=== PATIENT | female | born 1985 | race Caucasian/White ===

== ENCOUNTER 2020-01-30 09:54 | Emergency (ER) | payer OTHER, SELFPAY ==
[2020-01-30 10:06] VITALS: BP 151/90; PULSE 69; RESP 18; TEMP 36.6; O2SAT 100
--- NOTE | 2020-01-30 10:36 | ED.GENADULT ---
HPI - General Adult General Chief complaint: Urogenital-Female Stated complaint: Nausea,Side Pain Time Seen by Provider: 01/30/20 10:18 Source: patient and RN notes reviewed Mode of arrival: ambulatory Limitations: no limitations History of Present Illness HPI narrative: Patient presents today with a 2-day history of left side pain that is sharp and stabbing and intermittent in nature with nausea, vomiting, and urinary frequency. States she vomited so many times yesterday she lost count. She has had one episode of vomiting today. She also had one episode of diarrhea/loose stool today without blood or mucus. Denies fever or abdominal pain. Denies back injury. History of GERD for which she takes Pepcid AC, but states she does not feel that it is working any longer. Denies dysuria, hematuria. MD complaint: Side pain, nausea and vomiting Related Data Home Medications Medication Instructions Recorded Confirmed bupropion HCl 300 mg PO DAILY 01/30/20 01/30/20 famotidine [Pepcid AC] 10 mg PO DAILY 01/30/20 01/30/20 Allergies Allergy/AdvReac Type Severity Reaction Status Date / Time No Known Allergies Allergy Verified 01/30/20 10:11 Review of Systems Review of Systems: Narrative: CONSTITUTIONAL: Denies body aches, fever, chills, or sweats. EYES: Denies visual changes, redness, or discharge. ENT: Denies rhinorrhea, congestion, sore throat, or otalgia. CARDIOVASCULAR: Denies chest pain, palpitations, or edema. RESPIRATORY: Denies cough or dyspnea. GASTROINTESTINAL: + Nausea, vomiting, diarrhea, left side pain GENITOURINARY: Denies dysuria or hematuria.+ Urinary frequency SKIN: Denies rash, itching, or wounds. MUSCULOSKELETAL: Denies back pain, joint pain, or myalgia. NEUROLOGIC: Denies headache, numbness, tingling, or weakness. PSYCH: Denies depression or anxiety. [facility] Past Medical History Medical History (Updated 01/30/20 @ 11:54 by Agnes Friedman, CYTOPATHOLOGIST, ) Delivery with history of GERD (gastroesophageal reflux disease) Comments At time of signature, I have reviewed and agree with nursing past medical, surgical, social and family history unless otherwise noted. Please see nursing chart for further information. There is no relevant family history pertinent to the presenting complaint Exam Narrative: Exam Narrative: GENERAL: Well-appearing, well-nourished, and in no acute distress. HEAD: Normocephalic, atraumatic. EYES: EOMI. No redness or drainage. Conjunctivae normal. ENT: Mucous membranes pink and moist. Nares clear. No rhinorrhea. TMs normal bilaterally. Throat normal. Uvula midline. NECK: Normal AROM. Supple. No lymphadenopathy. CHEST: No respiratory distress. Clear to auscultation. HEART: Regular rate and rhythm. No murmur appreciated. Normal peripheral pulses. ABDOMEN: Soft, nontender, nondistended, normal active bowel sounds.-CVAT MUSCULOSKELETAL: No bony tenderness. EXTREMITIES: Normal range of motion. No edema. SKIN: Warm, dry, no rash. Capillary refill normal. Normal skin turgor. NEURO: No focal deficits. Alert and oriented x3. Gait steady. PSYCH: Normal affect. No signs of depression or anxiety. Course Vital Signs Vital signs: Vital Signs Temperature 97.8 F 01/30/20 10:06 Pulse Rate 69 01/30/20 10:06 Respiratory Rate 18 01/30/20 10:06 Blood Pressure 151/90 H 01/30/20 10:06 Pulse Oximetry 100 01/30/20 10:06 Temperature 97.8 F 01/30/20 10:06 Pulse Rate 69 01/30/20 10:06 Respiratory Rate 18 01/30/20 10:06 Blood Pressure 151/90 H 01/30/20 10:06 Pulse Oximetry 100 01/30/20 10:06 Reviewed. Pt has been instructed to follow up with her PCP regarding her elevated blood pressure today. Medical Decision Making Differential Diagnosis Differential Diagnosis: Gastroenteritis, gastritis, esophagitis, GERD exacerbation, viral syndrome, UTI, pyelonephritis, kidney stone Vital Signs Vital Signs: Vital Signs Temperature 97.8 F 01/30/20 10:06 P
== END 2020-01-30 10:41 | disposition home or self-care (01) ==
PROVIDERS: Emergency Provider Nurse Practitioner; PCP Internal Medicine
DX: K52.9 Noninfective gastroenteritis and colitis, unspecified (principal); K21.9 Gastro-esophageal reflux disease without esophagitis
CPT/HCPCS: 81003; 99213; G0463

== ENCOUNTER 2020-03-24 19:13 | Emergency (ER) | payer OTHER, SELFPAY ==
[2020-03-24 19:29] VITALS: BP 143/82; PULSE 111; RESP 18; TEMP 36.8; O2SAT 99
--- NOTE | 2020-03-24 19:48 | ED.URI ---
HPI - URI/Sore Throat General Chief Complaint: Upper Respiratory Infection Stated Complaint: possible strep Time Seen by Provider: 03/24/20 19:33 Source: patient and RN notes reviewed Mode of arrival: ambulatory Limitations: no limitations History of Present Illness HPI Narrative: Patient presents today complaining of sore throat, only with swallowing, weight patches on her tongue, redness in her throat, bumps on her tongue and complaining of dryness to her tongue, causing increased thirst. Symptoms have been present for 2 days. Related Data Home Medications Medication Instructions Recorded Confirmed bupropion HCl 300 mg PO DAILY 01/30/20 01/30/20 famotidine [Pepcid AC] 10 mg PO DAILY 01/30/20 01/30/20 Allergies Allergy/AdvReac Type Severity Reaction Status Date / Time No Known Allergies Allergy Verified 01/30/20 10:11 Review of Systems Review of Systems: Narrative: CONSTITUTIONAL: Denies body aches, fever, chills, or sweats. EYES: Denies visual changes, redness, or discharge. ENT: Denies rhinorrhea, congestion, or otalgia. + Throat pain with swallowing, redness to the throat, bumps to the tongue, whiteness to the tongue, dryness to the tongue CARDIOVASCULAR: Denies chest pain, palpitations, or edema. RESPIRATORY: Denies cough or dyspnea. GASTROINTESTINAL: Denies abdominal pain, nausea, vomiting, or diarrhea.+ Increased thirst GENITOURINARY: Denies dysuria or hematuria. SKIN: Denies rash, itching, or wounds. MUSCULOSKELETAL: Denies back pain, joint pain, or myalgia. NEUROLOGIC: Denies headache, numbness, tingling, or weakness. PSYCH: Denies depression or anxiety. [facility] Past Medical History Medical History (Updated 03/25/20 @ 00:00 by Background Daemon) Delivery with history of GERD (gastroesophageal reflux disease) Comments At time of signature, I have reviewed and agree with nursing past medical, surgical, social and family history unless otherwise noted. Please see nursing chart for further information. There is no relevant family history pertinent to the presenting complaint Exam Narrative: Exam Narrative: GENERAL: Well-appearing, well-nourished, and in no acute distress. HEAD: Normocephalic, atraumatic. EYES: EOMI. No redness or drainage. Conjunctivae normal. ENT: Mucous membranes pink and moist. Nares clear. No rhinorrhea. TMs normal bilaterally. Throat with mild redness to the palatine arches only. No edema. Uvula midline. Tongue is slightly dry without coating or areas of white. No abnormal bumps, but normal papillae present. NECK: Normal AROM. Supple. No lymphadenopathy. CHEST: No respiratory distress. Clear to auscultation. HEART: Regular rate and rhythm. No murmur appreciated. Normal peripheral pulses. EXTREMITIES: Normal range of motion. No edema. SKIN: Warm, dry, no rash. Capillary refill normal. Normal skin turgor. NEURO: No focal deficits. Alert and oriented x3. Gait steady. PSYCH: Normal affect. No signs of depression or anxiety. Course Vital Signs Vital signs: Vital Signs Temperature 98.2 F 03/24/20 19:29 Pulse Rate 111 H 03/24/20 19:29 Respiratory Rate 18 03/24/20 19:29 Blood Pressure 143/82 H 03/24/20 19:29 Pulse Oximetry 99 03/24/20 19:29 Temperature 98.2 F 03/24/20 19:29 Pulse Rate 111 H 03/24/20 19:29 Respiratory Rate 18 03/24/20 19:29 Blood Pressure 143/82 H 03/24/20 19:29 Pulse Oximetry 99 03/24/20 19:29 Reviewed. Pt has been instructed to follow up with her PCP regarding her elevated blood pressure today. MDM - URI/Sore Throat Differential Diagnosis Differential diagnosis: Likely upper respiratory infection, viral infection and other (Glossitis, thrush, [id number], herpes, impetigo, strep throat, pharyngitis, tonsillitis) Lab Data Attestation: I reviewed the patient's lab results. Labs: Lab Results 03/24/20 Range/Units 19:49 POC Capillary Glucose 102 (65-105) mg/dl Strep Screen
[2020-03-24 19:52] LABS: Glucose Point of Care 102 (65-105)
== END 2020-03-24 20:09 | disposition home or self-care (01) ==
PROVIDERS: Emergency Provider Nurse Practitioner
DX: J02.9 Acute pharyngitis, unspecified (principal); K21.9 Gastro-esophageal reflux disease without esophagitis
CPT/HCPCS: 87081; 87880; 99213; G0463

== ENCOUNTER 2021-06-14 12:37 | Emergency (ER) | payer OTHER, SELFPAY ==
[2021-06-14 12:45] VITALS: BP 149/91; PULSE 98; RESP 16; TEMP 36.6; O2SAT 98
--- NOTE | 2021-06-14 13:08 | ED.URI ---
HPI - URI/Sore Throat General Chief Complaint: Upper Respiratory Infection Stated Complaint: alexander/dizziness/ear pain Time Seen by Provider: 06/14/21 13:08 Source: patient Mode of arrival: ambulatory Limitations: no limitations History of Present Illness HPI Narrative: 35-year-old female presents with complaint of pain to frontal aspect and occiput, also to sinuses and ears for 2 to 3 days. Reports that she has taken sinus severe medication and Excedrin Migraine with no relief of pain. She denies congestion, sore throat, postnasal drainage, cough. She states she thinks that this is a sinus pain. She has had sinus pain before and also headaches before but never this bad. She reports some dizziness and nausea due to pain. Dizziness is intermittent and usually when laying down at night. Denies fever. No vision changes. Ambulatory with steady gait. Attempted to call her PCP but was not able to get a hold of anyone for an appointment. All systems reviewed and negative except as noted above. Related Data Home Medications Medication Instructions Recorded Confirmed bupropion HCl 300 mg PO DAILY 01/30/20 06/14/21 omeprazole 20 mg PO DAILY 06/14/21 06/14/21 Allergies Allergy/AdvReac Type Severity Reaction Status Date / Time No Known Allergies Allergy Verified 01/30/20 10:11 Review of Systems Review of Systems: CONSTITUTIONAL: Denies fever, chills, or sweats. EYES: Denies visual changes, redness, or discharge. ENT: Denies rhinorrhea, congestion, sore throat, or otalgia. CARDIOVASCULAR: Denies chest pain, palpitations, or edema. RESPIRATORY: Denies cough or dyspnea. GASTROINTESTINAL: Denies abdominal pain, nausea, vomiting, or diarrhea. GENITOURINARY: Denies dysuria or hematuria. SKIN: Denies rash or itching. MUSCULOSKELETAL: Denies back pain, joint pain, or myalgia. NEUROLOGIC: Reports headache with intermittent dizziness. Denies numbness, or weakness. PSYCHIATRIC: Denies anxiety or depression. All other systems reviewed are negative, except as documented in HPI. [facility] Past Medical History Medical History (Updated 06/14/21 @ 13:46 by Geraldine Gonzalez NP) Delivery with history of GERD (gastroesophageal reflux disease) Comments At time of signature, agree with nursing past medical, surgical, social and family history. There is no relevant family history pertinent to the presenting complaint. Exam Narrative: GENERAL: This is a well-nourished, well-developed patient, in no apparent distress. HEAD: normocephalic, atraumatic. EYES: PERRL. Sclera clear/white. Vision is grossly intact. EARS: External ears normal, auditory canals clear and without drainage, TMs normal without perforation. Hearing grossly intact. NOSE: External nose normal mild erythema to both nares with scant clear discharge. THROAT: Mucous membranes moist, posterior pharynx clear. NECK: Neck supple, non-tender without lymphadenopathy, masses or thyromegaly. CARDIOVASCULAR: Regular rate and rhythm without murmurs, gallops, or rubs. RESPIRATORY: Clear to auscultation. Breath sounds equal bilaterally. No wheezes, rales, or rhonchi. SKIN: warm, Dry, intact with no suspicious lesions or rash, good texture and turgor. NEURO: awake, alert, and oriented to person, place and time. There were no obvious focal neurologic abnormalities. EXTREMITIES: Normal range of motion noted all extremities. Course Course Level of Care: Express Care Visit Vital Signs Vital signs: Vital Signs Temperature 36.6 C 06/14/21 12:45 Pulse Rate 98 06/14/21 12:45 Respiratory Rate 16 06/14/21 12:45 Blood Pressure 149/91 H 06/14/21 12:45 Pulse Oximetry 98 06/14/21 12:45 Temperature 36.6 C 06/14/21 12:45 Pulse Rate 98 06/14/21 12:45 Respiratory Rate 16 06/14/21 12:45 Blood Pressure 149/91 H 06/14/21 12:45 Pulse Oximetry 98 06/14/21 12:45 Reviewed MDM - URI/Sore Throat MDM Narrative Medical decision making narrative: Recommend pat
[2021-06-14] MEDS: ONDANSETRON HCL ODT 4 MG TABLET SUBLINGUAL (13:21)
[2021-06-14] MEDS: KETOROLAC (*BKC) 60 MG/2 ML VIAL IM (13:22)
== END 2021-06-14 13:55 | disposition home or self-care (01) ==
PROVIDERS: Emergency Provider Nurse Practitioner Family; PCP Internal Medicine
DX: R51.9 Headache, unspecified (principal); K21.9 Gastro-esophageal reflux disease without esophagitis
CPT/HCPCS: 96372; 99213; A9270; G0463; J1885

== ENCOUNTER 2021-07-17 10:30 | Emergency (ER) | payer OTHER, SELFPAY ==
[2021-07-17 10:37] VITALS: BP 143/83; PULSE 89; RESP 18; TEMP 35.7; O2SAT 99
--- NOTE | 2021-07-17 10:45 | ED.URI ---
HPI - URI/Sore Throat General Chief Complaint: Upper Respiratory Infection Stated Complaint: sore throat/cough Time Seen by Provider: 07/17/21 10:40 Source: patient Mode of arrival: ambulatory Limitations: no limitations History of Present Illness HPI Narrative: Ms. Boswell is a 35-year-old female patient presenting to the clinic today with complaints of cough, sore throat, nasal congestion, chest congestion, and wheezing x2 weeks. She reports that she is having a productive cough with green phlegm. She denies any fever or chills however she has been having some hot flashes. No known exposure to anyone with COVID, strep, or flu. She is a current social THC smoker. Also reports that she is mildly short of breath at times with exertion that seems to be gradually getting worse. MD elicited complaint: cough, sore throat, rhinorrhea and nasal congestion Related Data Home Medications Medication Instructions Recorded Confirmed bupropion HCl 300 mg PO DAILY 01/30/20 06/14/21 omeprazole 20 mg PO DAILY 06/14/21 06/14/21 Allergies Allergy/AdvReac Type Severity Reaction Status Date / Time No Known Allergies Allergy Verified 01/30/20 10:11 Review of Systems Review of Systems: Pertinent positives per HPI. Patient denies any fever, chills, rash, headache, visual changes, dizziness, cough, shortness of breath, chest pain, palpitations, nausea, vomiting, diarrhea, constipation, abdominal pain, or any urinary issues. [facility] Past Medical History Medical History Delivery with history of GERD (gastroesophageal reflux disease) Comments At the time of my signature, I reviewed and agree with the nursing past medical, surgical, social, and family history. There is no relevant family history pertinent to the patient complaint. Exam Narrative: General: Well-developed, morbidly obese, in no apparent distress Head: Normocephalic, atraumatic Eyes: Pupils equally round and reactive to light bilaterally, EOM intact, sclera and conjunctive clear, no discharge, lids normal Ears: TMs intact and clear, ear canals clear, no drainage, grossly hearing normal. Nose: Nares patent, clear nasal discharge, mild inflammation, no sinus tenderness. Mouth: Oral pharynx without lesions or masses, good dentition, MMM. Postnasal drip, oropharynx red Neck: Supple, trachea midline, no enlargement of anterior or posterior cervical nodes, no thyroid masses or goiter palpable. Cardio: Regular rate and rhythm, s1 and s2 normal, no murmur appreciated. Resp: Inspiratory and expiratory wheezing to the left mid and lower posterior lobe and expiratory wheezing to the right lower posterior lobe, no rhonchi, rales, or rubs Course Course Emergency Course: Portions of this record may have been created with voice recognition software. Level of Care: Express Care Visit Vital Signs Vital signs: Vital Signs Temperature 35.7 C L 07/17/21 10:37 Pulse Rate 89 07/17/21 10:37 Respiratory Rate 18 07/17/21 10:37 Blood Pressure 143/83 H 07/17/21 10:37 Pulse Oximetry 99 07/17/21 10:37 Temperature 35.7 C L 07/17/21 10:37 Pulse Rate 89 07/17/21 10:37 Respiratory Rate 18 07/17/21 10:37 Blood Pressure 143/83 H 07/17/21 10:37 Pulse Oximetry 99 07/17/21 10:37 Vital signs reviewed MDM - URI/Sore Throat MDM Narrative Medical decision making narrative: At the time of assessment patient is resting comfortably on the exam table. She reports the symptoms have been ongoing for 2 weeks. As inspiratory and expiratory wheeze over the left posterior lobe and expiratory wheeze on the right side. She is a current smoker. She has postnasal drip as well as coughing up some green phlegm. No fevers but she has been having some hot flashes. I suspect that she has acute bronchitis with postnasal drip and I will treat with a prescription for some prednisone, azithromycin, albuterol inhaler, and
== END 2021-07-17 11:04 | disposition home or self-care (01) ==
PROVIDERS: Emergency Provider Nurse Practitioner Family
DX: R09.82 Postnasal drip (principal); J20.9 Acute bronchitis, unspecified
CPT/HCPCS: 99213; G0463

== ENCOUNTER 2021-10-23 12:01 | Emergency (ER) | payer OTHER, SELFPAY ==
--- NOTE | ~2021-10-23 | XR_ITS ---
EXAMINATION: XR chest 2V DATE: 10/23/2021 12:32 INDICATION: Shortness of breath and cough and wheezing. TECHNIQUE: Frontal and lateral views of the chest were obtained on 3 radiographs. COMPARISON: Chest 2 views 01/06/2016 FINDINGS: The chest demonstrates clear lungs without pneumonia, pleural effusion, or pneumothorax. Th e heart size is normal. IMPRESSION: 1. No acute cardiopulmonary disease. Reviewed, dictated and finalized at location A.
--- NOTE | 2021-10-23 12:09 | ED.URI ---
HPI - URI/Sore Throat General Chief Complaint: Upper Respiratory Infection Stated Complaint: Feels hot, sore throat, ear pain Time Seen by Provider: 10/23/21 12:15 Source: patient, RN notes reviewed and old records reviewed Mode of arrival: ambulatory Limitations: no limitations History of Present Illness HPI Narrative: 35-year-old female presents to the [facility] with complaints of feeling hot without fever, sore throat, ear pain, chest congestion and wheezing. Patient states is been going on for 6 days. Has been taking Mucinex and Peg-Walsh severe cold. Denies chest pain or abdominal pain. Related Data Home Medications Medication Instructions Recorded Confirmed bupropion HCl 300 mg 24 hr tablet, 300 mg PO DAILY 01/30/20 10/23/21 extended release omeprazole 20 mg capsule,delayed 40 mg PO DAILY 06/14/21 10/23/21 release Allergies Allergy/AdvReac Type Severity Reaction Status Date / Time No Known Allergies Allergy Verified 10/23/21 12:09 Review of Systems Review of Systems: All systems reviewed & are unremarkable except as noted in HPI and below Constitutional: Constitutional: Reports no additional constitutional complaints, Denies chills and Denies fever(s) Eyes: Eyes: Reports no additional eye complaints ENT: Reports as per HPI, Reports nasal congestion and Reports sore throat Cardiovascular: Cardiovascular: Reports no additional cardiovascular complaints Respiratory: Respiratory: Reports as per HPI, Reports chest congestion, Reports cough and Reports wheezing Gastrointestinal: Gastrointestinal: Reports no additional gastrointestinal complaints Musculoskeletal: Musculoskeletal: Reports no additional musculoskeletal complaints Integumentary/Breasts: Skin/Breast: Reports system reviewed and no additional complaints, except as docu Neurologic: Reports system reviewed and no additional complaints, except as documented Psychiatric: Psychiatric: Reports no additional psychiatric complaints Allergic/Immunologic: Allergic/Immunologic: Reports no additional allergic/immunologic complaints PMFSH Past Medical History Medical History Delivery with history of GERD (gastroesophageal reflux disease) Comments At the time of my signature, I reviewed and agree with the nursing past medical, surgical, social, and family history. There is no relevant family history pertinent to the patient complaint. Exam Const: General: healthy appearing, no acute distress and alert Nutritional Appearance: well nourished and obese Orientation/consciousness: patient oriented x3 Limitations: no limitations HENMT: Head: normal to inspection Ears: external ears normal Eyes: General: appearance normal, both eyes and all related structures Pupils: Equal, round and reactive pupils present Neck: Neck: normal visual inspection, no lymphadenopathy and no meningeal signs Chest: Chest palpation & inspection: normal inspection of the chest Resp: Effort & Inspection: normal respiratory effort and no use of accessory muscles Auscultation: clear to auscultation bilaterally, no crackles, no rales, no rhonchi and wheezes expiratory wheezes and throughout Cardio: Rate: regular rate Rhythm: regular rhythm Back/Spine/Pelvis: Cervical Spine: normal cervical lordosis Thoracic/Lumbar Spine: thoracic and lumbar spine normal to inspection Skin: General skin exam: normal color Rashes: no rashes Wounds: no wounds Neuro: General: patient oriented x3, moves all extremities, no meningeal signs and no focal motor deficits Cranial nerves: Yes Equal, round and reactive pupils present Speech: normal speech Gait exam (Neuro): Normal gait present Extrem: General: normal to inspection, full ROM and capillary refill normal Psych: Appearance: grossly normal and well kempt Mental Status: mental status grossly normal Affect: normal affect Attitude: cooperative Thought con
[2021-10-23 12:10] VITALS: BP 141/91; PULSE 95; RESP 16; TEMP 35.9; O2SAT 99
== END 2021-10-23 12:56 | disposition home or self-care (01) ==
PROVIDERS: Emergency Provider Nurse Practitioner
DX: J40 Bronchitis, not specified as acute or chronic (principal); K21.9 Gastro-esophageal reflux disease without esophagitis
CPT/HCPCS: 71046; 87081; 87880; 99213; G0463

== ENCOUNTER 2021-12-24 18:08 | Emergency (ER) | payer OTHER, SELFPAY ==
[2021-12-24 18:20] VITALS: BP 138/109; PULSE 100; RESP 16; TEMP 36.3; O2SAT 100
--- NOTE | 2021-12-24 18:20 | ED.FEMALEGU ---
HPI - Female Genitourinary General Chief complaint: Urogenital-Female Stated complaint: UTI Time Seen by Provider: 12/24/21 18:20 Source: patient Mode of arrival: ambulatory Limitations: no limitations History of Present Illness HPI Narrative: Ms. Boswell is a 36-year-old female patient presenting to the clinic today with complaints of possible urinary infection x2 day She reports she has been taking Azo for her symptoms. She reports some left flank pain with urinary urgency, frequency, and dysuria. No fever or chills Related Data Home Medications Medication Instructions Recorded Confirmed bupropion HCl 300 mg 24 hr tablet, 300 mg PO DAILY 01/30/20 12/24/21 extended release omeprazole 20 mg capsule,delayed 40 mg PO DAILY 06/14/21 12/24/21 release hydrocodone 5 mg-acetaminophen 325 1 tablet PO Q6-8H PRN Pain 12/24/21 12/24/21 mg tablet Allergies Allergy/AdvReac Type Severity Reaction Status Date / Time No Known Allergies Allergy Verified 12/24/21 18:11 Review of Systems Review of Systems: Pertinent positives per HPI. Patient denies any fever, chills, rash, headache, visual changes, dizziness, cough, runny nose, sore throat, shortness of breath, chest pain, palpitations, nausea, vomiting, diarrhea, constipation, abdominal pain. [facility] Past Medical History Medical History Delivery with history of GERD (gastroesophageal reflux disease) Comments At the time of my signature, I reviewed and agree with the nursing past medical, surgical, social, and family history. There is no relevant family history pertinent to the patient complaint. Exam Narrative: General: Well-developed, well nourished, in no apparent distress. Head: Normocephalic, atraumatic. Cardio: Regular rate and rhythm, s1 and s2 normal, no murmur appreciated. Resp: Clear to auscultation bilaterally, no rhonchi, rales, wheezing or rubs. Abdomen: Soft, pliable, bowel sounds present in all quadrants, mild tenderness to palpation over the left side of the abdomen , no organomegly, left CVAT tenderness. Course Course Emergency Course: Portions of this record may have been created with voice recognition software. Level of Care: Express Care Visit Vital Signs Vital signs: Vital Signs Temperature 36.3 C L 12/24/21 18:20 Pulse Rate 100 12/24/21 18:20 Respiratory Rate 16 12/24/21 18:20 Blood Pressure 138/109 H 12/24/21 18:20 Pulse Oximetry 100 12/24/21 18:20 Oxygen Delivery Room Air 12/24/21 18:20 Temperature 36.3 C L 12/24/21 18:20 Pulse Rate 100 12/24/21 18:20 Respiratory Rate 16 12/24/21 18:20 Blood Pressure 138/109 H 12/24/21 18:20 Pulse Oximetry 100 12/24/21 18:20 Oxygen Delivery Room Air 12/24/21 18:20 Vital signs reviewed MDM - Female Genitourinary MDM Narrative Medical decision making narrative: At the time of visit patient is resting comfortably on the exam table. UA was obtained however patient has been taking Azo so this will skew her urine dip results. Patient has urinary symptoms with frequency and urgency as well as dysuria and left flank pain. I will treat her for urinary tract infection and sent her prescription for some Bactrim and some Zofran for nausea Differential Diagnosis Differential diagnosis: Likely urinary tract infection, cystitis and other (Pyelonephritis) Discharge Plan Discharge Clinical Impression: Urinary tract infection Qualifiers: Urinary tract infection type: acute cystitis Hematuria presence: with hematuria Qualified Code(s): N30.01 - Acute cystitis with hematuria Patient Disposition: Home, Self-Care Condition: Stable Instructions: Antibiotic Form, Urinary Tract Infection in Women (ED) Additional Instructions: We will send urine for culture Take Bactrim and as prescribed Increase fluids and stay well hydrated Wipe front to back. May use wet wipes. Avoid tub baths I
== END 2021-12-24 18:37 | disposition home or self-care (01) ==
PROVIDERS: Emergency Provider Nurse Practitioner Family; PCP Internal Medicine
DX: N30.01 Acute cystitis with hematuria (principal); K21.9 Gastro-esophageal reflux disease without esophagitis
CPT/HCPCS: 87086; 99213; G0463

== ENCOUNTER 2022-03-16 15:12 | Emergency (ER) | payer OTHER, SELFPAY ==
[2022-03-16 16:21] VITALS: BP 127/77; PULSE 92; RESP 20; TEMP 36.6; O2SAT 98
--- NOTE | 2022-03-16 16:57 | ED.GENADULT ---
HPI - General Adult General Chief complaint: Upper Respiratory Infection Stated complaint: alexander/ear pain/uri Time Seen by Provider: 03/16/22 16:58 Source: patient Mode of arrival: ambulatory Limitations: no limitations History of Present Illness HPI narrative: 36-year-old female patient presents to the [facility] with complaints of cold symptoms for the past 2 weeks. Patient states she started having a cough, congestion, and sinus pressure, ears full about 2 weeks ago. Patient states symptoms have improved but continues to have a cough and feels like she has a lot of chest congestion. Patient states she was doing [id number] Mucinex however her [id number] had some left over amoxicillin and she was taking 250 mg every 8 hours for a couple of days as well some leftover steroids but unsure of how much she was taking. Patient states she does have a rescue inhaler that she has been using but only been using it once or twice a day. Nothing consistent. Patient states she still feels like she is having trouble breathing. Related Data Home Medications Medication Instructions Recorded Confirmed bupropion HCl 300 mg 24 hr tablet, 300 mg PO DAILY 01/30/20 03/16/22 extended release omeprazole 20 mg capsule,delayed 40 mg PO DAILY 06/14/21 03/16/22 release Allergies Allergy/AdvReac Type Severity Reaction Status Date / Time No Known Allergies Allergy Verified 03/16/22 16:35 Review of Systems Review of Systems: CONSTITUTIONAL: Denies fever, chills, or sweats. EYES: Denies visual changes, redness, or discharge. ENT: Positive rhinorrhea, congestion, denied sore throat, or otalgia. CARDIOVASCULAR: Denies chest pain, palpitations, or edema. RESPIRATORY: Positive cough with or dyspnea. GASTROINTESTINAL: Denies abdominal pain, nausea, vomiting, or diarrhea. GENITOURINARY: Denies dysuria or hematuria. SKIN: Denies rash or itching. MUSCULOSKELETAL: Denies back pain, joint pain, or myalgia. NEUROLOGIC: Denies headache, numbness, or weakness. PSYCHIATRIC: Denies anxiety or depression. [facility] Past Medical History Medical History Delivery with history of GERD (gastroesophageal reflux disease) Comments At the time of my signature I agree with nursing past medical history, surgical, social, and family history. There is no relevant family history pertinent to the presenting complaint. Exam Narrative: GENERAL: Well-appearing, well-nourished, and in no acute distress. HEAD: Normocephalic, atraumatic. EYES: PERRLA and EOMI. ENT: Nares clear, no rhinorrhea or epistaxis. Mucous membranes moist. Posterior pharynx with no erythema, tonsillar enlargement, exudates or lesions present. Bilateral TMs are clear no erythema or foreign bodies the canal. NECK: Supple. No lymphadenopathy CHEST: Patient has some coarseness or rhonchi noted to bilateral upper lobes on auscultation. No respiratory distress. Patient able talk clear complete sentences. HEART: Regular rate and rhythm. No murmur heard. Normal peripheral pulses. ABDOMEN: Soft, nontender, nondistended, normal active bowel sounds. EXTREMITIES: Normal range of motion. No edema. SKIN: Warm, dry, no rash. NEURO: No focal deficits. Alert and oriented x3. Course Course Level of Care: Express Care Visit Reevaluation(s) Reevaluation #1: Re-evaluate patient after receiving the breathing treatment. Patient still sounds coarse but has improved. Patient states she is feeling little bit better and feels like she can breathe a little bit deeper than before. Discussed with patient we will discharge her home with a course of steroids, another albuterol inhaler as well as Tessalon Perles for the cough. Discussed with patient if she continues to have symptoms despite this course of treatment I would encourage her to follow up with her primary doctor. Date: 03/16/22 Time: 17:55 Vital Signs Vital signs: Vital Signs Temperature
[2022-03-16] MEDS: ALBUTEROL SULFATE NEB 2.5 MG/3 ML INH INHALATION (17:11)
[2022-03-16] MEDS: IPRATROPIUM BR 0.02% INH SOLN 0.5 MG/2.5 ML VIAL INHALATION (17:12)
== END 2022-03-16 18:05 | disposition home or self-care (01) ==
PROVIDERS: Emergency Provider Nurse Practitioner Family
DX: J20.8 Acute bronchitis due to other specified organisms (principal); K21.9 Gastro-esophageal reflux disease without esophagitis
CPT/HCPCS: 94640; 99213; G0463

== ENCOUNTER 2022-04-29 13:30 | Emergency (ER) | payer OTHER, SELFPAY ==
[2022-04-29 13:35] VITALS: BP 142/72; PULSE 89; RESP 16; TEMP 36.2; O2SAT 100
--- NOTE | 2022-04-29 14:34 | ED.URI ---
HPI - URI/Sore Throat General Chief Complaint: Upper Respiratory Infection Stated Complaint: Ear/Nose/ Throat/Eyes Time Seen by Provider: 04/29/22 14:34 Source: patient, family, RN notes reviewed and old records reviewed Mode of arrival: ambulatory Limitations: no limitations History of Present Illness HPI Narrative: 36-year-old female presents to the [facility] with ear nose throat pain since this morning. Reports that this morning she woke up and both eyes were matted shut and burning. Related Data Home Medications Medication Instructions Recorded Confirmed bupropion HCl 300 mg 24 hr tablet, 300 mg PO DAILY 01/30/20 04/29/22 extended release omeprazole 20 mg capsule,delayed 40 mg PO DAILY 06/14/21 04/29/22 release Allergies Allergy/AdvReac Type Severity Reaction Status Date / Time No Known Allergies Allergy Verified 04/29/22 13:48 Review of Systems Review of Systems: All systems reviewed & are unremarkable except as noted in HPI and below Constitutional: Constitutional: Reports no additional constitutional complaints Eyes: Eyes: Reports as per HPI ENT: Reports as per HPI Cardiovascular: Cardiovascular: Reports no additional cardiovascular complaints, Denies chest pain and Denies dyspnea Respiratory: Respiratory: Reports no additional respiratory complaints, Denies chest congestion, Denies cough and Denies dyspnea Gastrointestinal: Gastrointestinal: Reports no additional gastrointestinal complaints, Denies abdominal pain, Denies nausea and Denies vomiting Musculoskeletal: Musculoskeletal: Reports no additional musculoskeletal complaints Integumentary/Breasts: Skin/Breast: Reports system reviewed and no additional complaints, except as docu Neurologic: Reports system reviewed and no additional complaints, except as documented Psychiatric: Psychiatric: Reports no additional psychiatric complaints Allergic/Immunologic: Allergic/Immunologic: Reports no additional allergic/immunologic complaints PMFSH Past Medical History Medical History Delivery with history of GERD (gastroesophageal reflux disease) Comments At the time of my signature, I reviewed and agree with the nursing past medical, surgical, social, and family history. There is no relevant family history pertinent to the patient complaint. Exam Const: General: cooperative, healthy appearing, comfortable, no acute distress, well developed, alert and well nourished Nutritional Appearance: well nourished and obese Orientation/consciousness: patient oriented x3 Limitations: no limitations HENMT: Head: normal to inspection Ears: hearing grossly normal bilaterally and external ears normal Face/Nose/Sinus: Normal external nose present, Normal nares present, Normal nasal mucous membranes and turbinates present and normal facial exam Face and sinus: normal facial exam Mouth: Yes Normal oral and palatal mucosa present, Yes lip normal and Yes moist mucous membranes Throat: posterior oropharynx normal and uvula midline Eyes: General: appearance normal, both eyes and all related structures Alignment and Position: alignment normal Periorbital: periorbital findings normal Conjunctivae: conjunctival abnormality bilateral conjunctival injection localized and discharge mucoid Pupils: Equal, round and reactive pupils present EOM: EOMs intact bilaterally Neck: Neck: normal visual inspection, full ROM, no lymphadenopathy and no meningeal signs Chest: Chest palpation & inspection: normal inspection of the chest Resp: Effort & Inspection: normal respiratory effort and able to speak in complete sentences Auscultation: clear to auscultation bilaterally, no crackles, no rales, no rhonchi and no wheezes Cardio: Rate: regular rate Rhythm: regular rhythm Back/Spine/Pelvis: Cervical Spine: cervical ROM normal Thoracic/Lumbar Spine: No thoracic spinal tenderness Skin: General skin exam: kaity
== END 2022-04-29 14:46 | disposition home or self-care (01) ==
PROVIDERS: Emergency Provider Nurse Practitioner; PCP Family Medicine
DX: H10.33 Unspecified acute conjunctivitis, bilateral (principal); J06.9 Acute upper respiratory infection, unspecified; Z20.822 Contact with and (suspected) exposure to COVID-19; K21.9 Gastro-esophageal reflux disease without esophagitis
CPT/HCPCS: 87081; 87426; 87804; 87880; 99213; C9803; G0463

== ENCOUNTER 2022-07-12 13:30 | Emergency (ER) | payer OTHER, SELFPAY ==
[2022-07-12 13:45] VITALS: BP 133/70; PULSE 89; RESP 16; TEMP 37.4; O2SAT 97
--- NOTE | 2022-07-12 14:18 | ED.URI ---
HPI - URI/Sore Throat General Chief Complaint: Urogenital-Female Stated Complaint: uri Time Seen by Provider: 07/12/22 14:19 Source: patient Mode of arrival: ambulatory Limitations: no limitations History of Present Illness HPI Narrative: 36-year-old female presented for complaint frequent cough since February 2022. She endorses she has seen her primary care provider and has been to Urgent Care the same complaint. She states nebulizer treatment has helped in the past. PPIs were also changed by the PCP. She is scheduled for PFTs on 08/06/2022. She also states she has been through 3 courses of steroids and antibiotics, increased humidity at home, has taken Mucinex and Zyrtec, and also using albuterol p.r.n.. Symptoms are worse at night. She endorses the cough causes urinary incontinence. She states the urine has a foul odor is concerned for UTI. Denies shortness of breath, nausea, vomiting, diarrhea, fevers or chills. Related Data Home Medications Medication Instructions Recorded Confirmed escitalopram oxalate 10 mg tablet mg 07/12/22 fluticasone propionate 50 1 spray intranasal DAILY 07/12/22 07/12/22 mcg/actuation nasal spray,suspension montelukast 10 mg tablet mg 07/12/22 pantoprazole 40 mg tablet,delayed mg PO 07/12/22 release Allergies Allergy/AdvReac Type Severity Reaction Status Date / Time No Known Allergies Allergy Verified 07/12/22 13:43 Review of Systems Review of Systems: CONSTITUTIONAL: Denies body aches, fever, chills, or sweats. EYES: Denies visual changes, redness, or discharge. ENT: Denies rhinorrhea, congestion, sore throat, or otalgia. CARDIOVASCULAR: Denies chest pain, palpitations, or edema. RESPIRATORY: Reports cough, sob, wheezing. GASTROINTESTINAL: Denies abdominal pain, nausea, vomiting, or diarrhea. GENITOURINARY: Denies dysuria or hematuria. SKIN: Denies rash, itching, or wounds. MUSCULOSKELETAL: Denies back pain, joint pain, or myalgia. NEUROLOGIC: Denies headache, numbness, tingling, or weakness. PSYCH: Denies depression or anxiety. All systems reviewed & are unremarkable except as noted in HPI and below PMFSH Past Medical History Medical History Delivery with history of GERD (gastroesophageal reflux disease) Comments At time of signature, I have reviewed and agree with nursing past medical, surgical, social and family history unless otherwise noted. Please see nursing chart for further information. There is no relevant family history pertinent to the presenting complaint Exam Narrative: GENERAL: Well-appearing EYES: EOMI. No redness or drainage. Conjunctivae normal. ENT: Mucous membranes pink and moist. No rhinorrhea. TMs normal bilaterally. Throat normal. Uvula midline. NECK: Normal AROM. Supple. CHEST: No respiratory distress. Faint exp wheezing posteriorly. Speaks full sentences. HEART: Regular rate and rhythm. No murmur appreciated. ABDOMEN: Soft, nontender, nondistended, normal active bowel sounds. EXTREMITIES: Normal range of motion. No edema. SKIN: Warm, dry, no rash. Capillary refill normal. Normal skin turgor. NEURO: Alert and oriented x3. Gait steady. PSYCH: Normal affect. Course Course Emergency Course: Patient is aware of diagnosis, understands and agrees to treatment plan. Anticipatory guidance given. Patient agrees to follow-up as directed and is aware of reasons to seek care at the emergency department. Portions of this record may have been created with voice recognition software Level of Care: Express Care Visit Vital Signs Vital signs: Vital Signs Temperature 99.4 F 07/12/22 13:45 Pulse Rate 89 07/12/22 13:45 Respiratory Rate 16 07/12/22 13:45 Blood Pressure 133/70 07/12/22 13:45 Pulse Oximetry 97 07/12/22 13:45 Oxygen Delivery Room Air 07/12/22 13:45 Temperature 99.4 F 07/12/22 13:45 Pulse Rate 89 07/12/22 13:4
== END 2022-07-12 14:44 | disposition home or self-care (01) ==
PROVIDERS: Emergency Provider Nurse Practitioner Family
DX: R05.9 Cough, unspecified (principal); R32 Unspecified urinary incontinence; K21.9 Gastro-esophageal reflux disease without esophagitis
CPT/HCPCS: 81003; 99213; G0463

== ENCOUNTER 2022-09-01 13:41 | Emergency (ER) | payer OTHER, SELFPAY ==
--- NOTE | 2022-09-01 13:43 | ED.FEMALEGU ---
HPI - Female Genitourinary General Chief complaint: Urogenital-Female Stated complaint: uti Time Seen by Provider: 09/01/22 13:57 Source: patient, RN notes reviewed and old records reviewed Mode of arrival: ambulatory Limitations: no limitations History of Present Illness HPI Narrative: 36-year-old female presents to the [facility] with concerns of having a UTI. Patient states her symptoms started yesterday with frequency, urgency, burning, feeling like she is not emptying her bladder, suprapubic pain as well as foul-smelling urine. Denies fevers. Onset (ago): day(s) (1) Related Data Home Medications Medication Instructions Recorded Confirmed escitalopram oxalate 10 mg tablet mg 07/12/22 fluticasone propionate 50 1 spray intranasal DAILY 07/12/22 07/12/22 mcg/actuation nasal spray,suspension montelukast 10 mg tablet mg 07/12/22 pantoprazole 40 mg tablet,delayed mg PO 07/12/22 release Allergies Allergy/AdvReac Type Severity Reaction Status Date / Time No Known Allergies Allergy Verified 09/01/22 13:45 Review of Systems Review of Systems: All systems reviewed & are unremarkable except as noted in HPI and below Constitutional: Constitutional: Reports no additional constitutional complaints Eyes: Eyes: Reports no additional eye complaints ENT: Reports system reviewed and no additional complaints, except as documented Cardiovascular: Cardiovascular: Reports no additional cardiovascular complaints, Denies chest pain and Denies dyspnea Respiratory: Respiratory: Reports no additional respiratory complaints, Denies chest congestion, Denies cough and Denies dyspnea Gastrointestinal: Gastrointestinal: Reports no additional gastrointestinal complaints, Denies abdominal pain, Denies nausea and Denies vomiting Genitourinary: Genitourinary: Reports as per HPI Musculoskeletal: Musculoskeletal: Reports no additional musculoskeletal complaints Integumentary/Breasts: Skin/Breast: Reports system reviewed and no additional complaints, except as docu Neurologic: Reports system reviewed and no additional complaints, except as documented Psychiatric: Psychiatric: Reports no additional psychiatric complaints Allergic/Immunologic: Allergic/Immunologic: Reports no additional allergic/immunologic complaints PMFSH Past Medical History Medical History Delivery with history of GERD (gastroesophageal reflux disease) Comments At the time of my signature, I reviewed and agree with the nursing past medical, surgical, social, and family history. There is no relevant family history pertinent to the patient complaint. Exam Const: General: cooperative, healthy appearing, comfortable, no acute distress, well developed, alert and well nourished Nutritional Appearance: well nourished Orientation/consciousness: patient oriented x3 Limitations: no limitations HENMT: Head: normal to inspection Ears: hearing grossly normal bilaterally and external ears normal Face/Nose/Sinus: Normal external nose present, Normal nares present, Normal nasal mucous membranes and turbinates present and normal facial exam Face and sinus: normal facial exam Mouth: Yes Normal oral and palatal mucosa present, Yes lip normal and Yes moist mucous membranes Throat: posterior oropharynx normal and uvula midline Eyes: General: appearance normal, both eyes and all related structures Alignment and Position: alignment normal Periorbital: periorbital findings normal Pupils: Equal, round and reactive pupils present EOM: EOMs intact bilaterally Neck: Neck: normal visual inspection, full ROM, no lymphadenopathy and no meningeal signs Chest: Chest palpation & inspection: normal inspection of the chest Resp: Effort & Inspection: normal respiratory effort and able to speak in complete sentences Auscultation: clear to auscultation bilaterally, no crackles, no rales, no rhonchi and no wheezes Cardi
[2022-09-01 13:45] VITALS: BP 133/71; PULSE 75; RESP 16; TEMP 36.8; O2SAT 99
== END 2022-09-01 14:13 | disposition home or self-care (01) ==
PROVIDERS: Emergency Provider Nurse Practitioner; PCP Family Medicine
DX: R30.0 Dysuria (principal); K21.9 Gastro-esophageal reflux disease without esophagitis
CPT/HCPCS: 81003; 87077; 87086; 87186; 99213; G0463

== ENCOUNTER 2022-11-02 19:42 | Emergency (ER) | payer OTHER, SELFPAY ==
--- NOTE | 2022-11-02 19:45 | ED.URI ---
HPI - URI/Sore Throat General Chief Complaint: Upper Respiratory Infection Stated Complaint: Eyes/Ears Irritation/Sinus Time Seen by Provider: 11/02/22 19:45 Source: patient Mode of arrival: ambulatory Limitations: no limitations History of Present Illness HPI Narrative: Marla is a 36-year-old female patient presenting to the clinic today with complaints of ear pain, sinus congestion, cough, sore throat and itchy eyes x3 days. She reports no known fever, body aches, or chills. Denies any nausea, vomiting, or diarrhea. No known exposure to anyone with COVID, flu, or strep. MD elicited complaint: cough, sore throat and nasal congestion Related Data Home Medications Medication Instructions Recorded Confirmed escitalopram oxalate 10 mg tablet mg 07/12/22 fluticasone propionate 50 1 spray intranasal DAILY 07/12/22 07/12/22 mcg/actuation nasal spray,suspension montelukast 10 mg tablet mg 07/12/22 pantoprazole 40 mg tablet,delayed mg PO 07/12/22 release Allergies Allergy/AdvReac Type Severity Reaction Status Date / Time No Known Allergies Allergy Verified 09/01/22 13:45 Review of Systems Review of Systems: Pertinent positives per HPI. Patient denies any fever, chills, rash, headache, visual changes, dizziness, shortness of breath, chest pain, palpitations, nausea, vomiting, diarrhea, constipation, abdominal pain, or any urinary issues. [facility] Past Medical History Medical History Delivery with history of GERD (gastroesophageal reflux disease) Comments At the time of my signature, I reviewed and agree with the nursing past medical, surgical, social, and family history. There is no relevant family history pertinent to the patient complaint. Exam Narrative: General: Well-developed, obese, in no apparent distress Head: Normocephalic, atraumatic Eyes: Pupils equally round and reactive to light bilaterally, EOM intact, sclera and conjunctive clear, no discharge, lids normal Ears: TMs intact and clear, ear canals clear, no drainage, grossly hearing normal. Nose: Nares patent, clear nasal discharge, no inflammation, no sinus tenderness. Mouth: Oral pharynx red without lesions or masses, good dentition, MMM. Postnasal drip Neck: Supple, trachea midline, no enlargement of anterior or posterior cervical nodes, no thyroid masses or goiter palpable. Cardio: Regular rate and rhythm, s1 and s2 normal, no murmur appreciated. Resp: Clear to auscultation bilaterally, no rhonchi, rales, wheezing or rubs Course Course Emergency Course: Portions of this record may have been created with voice recognition software. Level of Care: Express Care Visit Vital Signs Vital signs: Vital signs reviewed MDM - URI/Sore Throat MDM Narrative Medical decision making narrative: At the time of the patient is resting comfortably on the exam table. Strep screen was obtained. I suspect patient has URI/pharyngitis. Supportive measures were discussed with the patient she voiced understanding discharge instructions agrees to treatment plan. Differential Diagnosis Differential diagnosis: Likely upper respiratory infection, otitis media, sinusitis, viral infection, influenza and pharyngitis Discharge Plan Discharge Clinical Impression: Upper respiratory infection Qualifiers: URI type: unspecified URI Qualified Code(s): J06.9 - Acute upper respiratory infection, unspecified Pharyngitis Qualifiers: Pharyngitis/tonsillitis etiology: unspecified etiology Qualified Code(s): J02.9 - Acute pharyngitis, unspecified Patient Disposition: Home, Self-Care Condition: Stable Instructions: Antibiotic Form, Pharyngitis (ED), Upper Respiratory Infection (ED) Additional Instructions: Strep screen was negative in the clinic today. We will send strep for culture if this comes back positive we will contact him place you on antibiotics at that time.
[2022-11-02 19:52] VITALS: BP 135/75; PULSE 92; RESP 18; TEMP 36.5; O2SAT 100
--- NOTE | 2022-11-02 19:58 | PC.NURSE ---
documentation completed by cecilia jones rn and reviewed
== END 2022-11-02 20:00 | disposition home or self-care (01) ==
PROVIDERS: Emergency Provider Nurse Practitioner Family; PCP Family Medicine
DX: J06.9 Acute upper respiratory infection, unspecified (principal); J02.9 Acute pharyngitis, unspecified; K21.9 Gastro-esophageal reflux disease without esophagitis
CPT/HCPCS: 87081; 87880; 99213; G0463

== ENCOUNTER 2023-01-15 19:38 | Emergency (ER) | payer OTHER, SELFPAY ==
--- NOTE | 2023-01-15 19:39 | ED.URI ---
HPI - URI/Sore Throat General Chief Complaint: Upper Respiratory Infection Stated Complaint: Sore Throat Time Seen by Provider: 01/15/23 19:39 Source: patient Mode of arrival: ambulatory Limitations: no limitations History of Present Illness HPI Narrative: Marla is a 37 year old female patient presenting to the clinic today with complaints of sore throat, nasal congestion, ear pain, and headache times 2-3 days. Temperature of 38.1? C in the clinic today. No known exposure to bat with COVID, flu, or strep MD elicited complaint: sore throat and nasal congestion Related Data Home Medications Medication Instructions Recorded Confirmed escitalopram oxalate 10 mg tablet mg 07/12/22 montelukast 10 mg tablet mg 07/12/22 pantoprazole 40 mg tablet,delayed mg PO 07/12/22 release Allergies Allergy/AdvReac Type Severity Reaction Status Date / Time No Known Allergies Allergy Verified 01/15/23 19:43 Review of Systems Review of Systems: Pertinent positives per HPI. Patient denies any rash, visual changes, dizziness,shortness of breath, chest pain, palpitations, nausea, vomiting, diarrhea, constipation, abdominal pain, or any urinary issues. [facility] Past Medical History Medical History Delivery with history of GERD (gastroesophageal reflux disease) Comments At the time of my signature, I reviewed and agree with the nursing past medical, surgical, social, and family history. There is no relevant family history pertinent to the patient complaint. Exam Narrative: General: Well-developed, well nourished, in no apparent distress Head: Normocephalic, atraumatic Eyes: Pupils equally round and reactive to light bilaterally, EOM intact, sclera and conjunctive clear, no discharge, lids normal Ears: TMs intact and congested,, ear canals clear, no drainage, grossly hearing normal. Nose: Nares patent, clear nasal discharge, no inflammation, no sinus tenderness. Mouth: Oral pharynx red with bilateral tonsillar enlargement without lesions or masses, good dentition, MMM. Neck: Supple, trachea midline, enlargement of anterior cervical nodes, no thyroid masses or goiter palpable. Cardio: Regular rate and rhythm, s1 and s2 normal, no murmur appreciated. Resp: Clear to auscultation bilaterally, no rhonchi, rales, wheezing or rubs Course Course Emergency Course: Portions of this record may have been created with voice recognition software. Level of Care: Express Care Visit Vital Signs Vital signs: Vital signs reviewed MDM - URI/Sore Throat MDM Narrative Medical decision making narrative: At the time of visit patient is resting comfortably on the exam table. Strep screen was obtained and was positive in the clinic today. Prescription for amoxicillin was sent to the pharmacy. Supportive measures were discussed with the patient she voiced understanding discharge instructions agrees to treatment plan. Differential Diagnosis Differential diagnosis: Likely upper respiratory infection, otitis media, sinusitis, viral infection, bronchitis, influenza, pharyngitis and other (COVID) Discharge Plan Discharge Clinical Impression: Acute streptococcal pharyngitis Patient Disposition: Home, Self-Care Condition: Stable Instructions: Antibiotic Form, Strep Throat (ED) Additional Instructions: Strep test was positive in the clinic today Change her toothbrush in 24 hours after initiation of the antibiotics Take prescription medications only as prescribed-amoxicillin Increase fluids and stay well hydrated Tylenol/motrin for pain/fever Flonase and OTC antihistamines as directed Vicks vapor rub to open sinuses Sinus rinses for congestion Cepacol spray, cough drops, throat lozenges, warm tea with honey/lemon, gargle salt water to soothe throat BRAT diet for diarrhea Clear liquids x 24 hours then advance as tolerated for nausea/vomit
[2023-01-15 19:44] VITALS: BP 133/84; PULSE 108; RESP 18; TEMP 38.1; O2SAT 100
== END 2023-01-15 20:00 | disposition home or self-care (01) ==
PROVIDERS: Emergency Provider Nurse Practitioner Family; PCP Family Medicine
DX: J02.0 Streptococcal pharyngitis (principal); K21.9 Gastro-esophageal reflux disease without esophagitis
CPT/HCPCS: 87880; 99213; G0463

== ENCOUNTER 2023-02-17 18:06 | Emergency (ER) | payer OTHER, SELFPAY ==
[2023-02-17 18:21] VITALS: BP 127/83; PULSE 78; RESP 18; TEMP 36.3; O2SAT 100
--- NOTE | 2023-02-17 18:40 | ED.FEMALEGU ---
HPI - Female Genitourinary General Chief complaint: Urogenital-Female Stated complaint: UTI Time Seen by Provider: 02/17/23 18:08 Source: patient Mode of arrival: ambulatory Limitations: no limitations History of Present Illness HPI Narrative: Marla is a 37-year-old female patient presenting to the clinic today with complaints of possible UTI. She reads reported urinary frequency and incomplete emptying. She also has a little discomfort with urination. States this is the has been going on for couple days now. No fever or chills belly pain or back pain. Related Data Home Medications Medication Instructions Recorded Confirmed escitalopram oxalate 10 mg tablet 10 mg DIRECTED 07/12/22 02/17/23 pantoprazole 40 mg tablet,delayed 40 mg PO DIRECTED 07/12/22 02/17/23 release fluticasone propionate 50 50 mcg intranasal DIRECTED 02/17/23 02/17/23 mcg/actuation nasal spray,suspension Allergies Allergy/AdvReac Type Severity Reaction Status Date / Time No Known Allergies Allergy Verified 01/15/23 19:43 Review of Systems Review of Systems: Pertinent positives per HPI. Patient denies any fever, chills, rash, headache, visual changes, dizziness, cough, runny nose, sore throat, shortness of breath, chest pain, palpitations, nausea, vomiting, diarrhea, constipation, abdominal pain PMFSH Past Medical History Medical History Delivery with history of GERD (gastroesophageal reflux disease) Comments At the time of my signature, I reviewed and agree with the nursing past medical, surgical, social, and family history. There is no relevant family history pertinent to the patient complaint. Exam Narrative: General: Well-developed, obese, in no apparent distress. Head: Normocephalic, atraumatic. Cardio: Regular rate and rhythm, s1 and s2 normal, no murmur appreciated. Resp: Clear to auscultation bilaterally, no rhonchi, rales, wheezing or rubs. Abdomen: Soft, pliable, bowel sounds present in all quadrants, non-tender to palpation, no organomegly, no CVAT tenderness. Course Course Emergency Course: Portions of this record may have been created with voice recognition software. Level of Care: Express Care Visit Vital Signs Vital signs: Vital Signs Temperature 36.3 C L 02/17/23 18:21 Pulse Rate 78 02/17/23 18:21 Respiratory Rate 18 02/17/23 18:21 Blood Pressure 127/83 02/17/23 18:21 Pulse Oximetry 100 02/17/23 18:21 Oxygen Delivery Room Air 02/17/23 18:21 Temperature 36.3 C L 02/17/23 18:21 Pulse Rate 78 02/17/23 18:21 Respiratory Rate 18 02/17/23 18:21 Blood Pressure 127/83 02/17/23 18:21 Pulse Oximetry 100 02/17/23 18:21 Oxygen Delivery Room Air 02/17/23 18:21 Vital signs reviewed MDM - Female Genitourinary MDM Narrative Medical decision making narrative: At the time of visit patient is resting comfortably on the exam table. UA shows trace of leukocyte and trace of blood. Will send in prescription for Macrobid and send the urine for culture. Supportive measure were discussed with the patient she voiced understanding discharge instructions and agrees to treatment plan. Differential Diagnosis Differential diagnosis: Likely urinary tract infection and cystitis Lab Data Labs: Urine Glucose Negative Reference Range: Negative Urine Glucose Negative Reference Range: Negative Urine Bilirubin Negative Reference Range: Negative Urine Bilirubin Negative Reference Range: Negative Urine Ketone Negative Reference Range: Negative Urine Ketone Negative
== END 2023-02-17 18:50 | disposition home or self-care (01) ==
PROVIDERS: Emergency Provider Nurse Practitioner Family; PCP Family Medicine
DX: N30.01 Acute cystitis with hematuria (principal); K21.9 Gastro-esophageal reflux disease without esophagitis; B96.4 Proteus (mirabilis) (morganii) as the cause of diseases classified elsewhere
CPT/HCPCS: 81003; 87077; 87086; 87186; 99213; G0463

== ENCOUNTER 2023-03-14 13:57 | Emergency (ER) | payer OTHER, SELFPAY ==
[2023-03-14 14:37] VITALS: BP 119/67; PULSE 73; RESP 16; TEMP 36.9; O2SAT 100
--- NOTE | 2023-03-14 15:22 | ED.DIZZY ---
HPI - Dizziness General Chief Complaint: Dizziness Stated Complaint: dizzy,sleeping a lot, off balance Time Seen by Provider: 03/14/23 15:22 Source: patient and RN notes reviewed Mode of arrival: ambulatory Limitations: no limitations History of Present Illness HPI Narrative: 37-year-old female presented for complaint of dizziness for about 2 days. She states dizziness is much worse when she turns her head or with movement like walking. She states today she felt like she was losing her balance. She endorses feeling drunk or fuzzy with with head pressure. Taking meclizine without improvement. She denies vision changes, photophobia, nausea, vomiting or fever. Related Data Home Medications Medication Instructions Recorded Confirmed escitalopram oxalate 10 mg tablet 10 mg PO DIRECTED 07/12/22 03/14/23 pantoprazole 40 mg tablet,delayed 40 mg PO DIRECTED 07/12/22 03/14/23 release fluticasone propionate 50 50 mcg intranasal DIRECTED 02/17/23 03/14/23 mcg/actuation nasal spray,suspension budesonide-formoterol HFA 160 2 puff inhalation QID 03/14/23 03/14/23 mcg-4.5 mcg/actuation aerosol inhaler (Symbicort) loratadine 10 mg tablet 10 mg PO DAILY 03/14/23 03/14/23 Allergies Allergy/AdvReac Type Severity Reaction Status Date / Time No Known Allergies Allergy Verified 03/14/23 14:45 Review of Systems Review of Systems: CONSTITUTIONAL: Denies body aches, fever, chills, or sweats. EYES: Denies visual changes, redness, or discharge. ENT: Denies rhinorrhea, congestion, sore throat, or otalgia. CARDIOVASCULAR: Denies chest pain, palpitations, or edema. RESPIRATORY: Denies cough or dyspnea. GASTROINTESTINAL: Denies abdominal pain, nausea, vomiting, or diarrhea. GENITOURINARY: Denies dysuria or hematuria. SKIN: Denies rash, itching, or wounds. MUSCULOSKELETAL: Denies back pain, joint pain, or myalgia. NEUROLOGIC: Endorses dizziness denies headache, numbness, tingling, or weakness All systems reviewed & are unremarkable except as noted in HPI and below PMFSH Past Medical History Medical History Delivery with history of GERD (gastroesophageal reflux disease) Comments At time of signature, I have reviewed and agree with nursing past medical, surgical, social and family history unless otherwise noted. Please see nursing chart for further information. There is no relevant family history pertinent to the presenting complaint Exam Narrative: GENERAL: Well-appearing HEAD: Normocephalic, atraumatic. EYES: PERRLA, EOMI. ENT: Mucous membranes pink and moist. No rhinorrhea. TMs normal bilaterally. NECK: Normal AROM. CHEST: No respiratory distress. Clear to auscultation. HEART: Regular rate and rhythm. No murmur appreciated. Normal peripheral pulses. ABDOMEN: Soft, nontender, nondistended, normal active bowel sounds. SKIN: Warm, dry, no rash. Capillary refill normal. Normal skin turgor. NEURO:No focal deficits. Alert and oriented x3. EOMs intact without nystagmus. No facial droop/asymmetry noted bilaterally. Grimace intact. Intact sensation in face. Hearing intact bilaterally. Ambulatory exam with a normal based, steady gait. PSYCH: flat affect. Course Course Emergency Course: Patient is aware of diagnosis, understands and agrees to treatment plan. Anticipatory guidance given. Patient agrees to follow-up as directed and is aware of reasons to seek care at the emergency department. Portions of this record may have been created with voice recognition software Level of Care: Express Care Visit Vital Signs Vital signs: Vital Signs Temperature 98.5 F 03/14/23 14:37 Pulse Rate 73 03/14/23 14:37 Respiratory Rate 16 03/14/23 14:37 Blood Pressure 119/67 03/14/23 14:37 Pulse Oximetry 100 03/14/23 14:37 Oxygen Delivery Room Air 03/14/23 14:37 Temperature 98.5 F 03/14/23 14:37 Pulse Rate 73 1
== END 2023-03-14 15:49 | disposition home or self-care (01) ==
PROVIDERS: Emergency Provider Nurse Practitioner Family; PCP Family Medicine
DX: R42 Dizziness and giddiness (principal); K21.9 Gastro-esophageal reflux disease without esophagitis
CPT/HCPCS: 99213; G0463

== ENCOUNTER 2023-12-28 10:25 | Emergency (ER) | payer OTHER, SELFPAY ==
[2023-12-28 10:46] VITALS: BP 125/77; PULSE 74; RESP 20; TEMP 36.7; O2SAT 97
--- NOTE | 2023-12-28 10:51 | ED.URI ---
HPI - URI/Sore Throat General Chief Complaint: Upper Respiratory Infection Stated Complaint: Sinus Time Seen by Provider: 12/28/23 11:18 Source: patient and RN notes reviewed Mode of arrival: ambulatory Limitations: no limitations History of Present Illness HPI Narrative: 38-year-old female presents with concern for 1 and half week history of cough, chest congestion, productive cough. She is worse at night. She reports she had nasal congestion and drainage originally which mostly has resolved but she now has more chest congestion symptoms. She reports body ache, headache. She reports [id number] medications are not helping. MD elicited complaint: cough Related Data Home Medications Medication Instructions Recorded Confirmed escitalopram oxalate 10 mg tablet 10 mg PO DIRECTED 07/12/22 12/28/23 pantoprazole 40 mg tablet,delayed 40 mg PO DIRECTED 07/12/22 12/28/23 release fluticasone propionate 50 50 mcg intranasal DIRECTED 02/17/23 12/28/23 mcg/actuation nasal spray,suspension budesonide-formoterol HFA 160 2 puff inhalation QID 03/14/23 12/28/23 mcg-4.5 mcg/actuation aerosol inhaler (Symbicort) loratadine 10 mg tablet 10 mg PO DAILY 03/14/23 12/28/23 Allergies Allergy/AdvReac Type Severity Reaction Status Date / Time No Known Allergies Allergy Verified 12/28/23 10:40 Review of Systems Review of Systems: CONSTITUTIONAL: Reports malaise. Denies chills, sweats, or fever. EYES: Denies visual changes, redness, or discharge. ENT: Reports rhinorrhea, congestion. Denies sinus pain, otalgia and sore throat. CARDIOVASCULAR: Denies chest pain, palpitations, or edema. RESPIRATORY: Reports productive cough. Denies dyspnea. GASTROINTESTINAL: Denies abdominal pain, nausea, vomiting, diarrhea SKIN: Denies rash or itching. MUSCULOSKELETAL: Reports myalgia. NEUROLOGIC: Reports headache. All systems reviewed & are unremarkable except as noted in HPI and below PMFSH Past Medical History Medical History Delivery with history of GERD (gastroesophageal reflux disease) Comments At time of signature, agree with nursing past medical, surgical, social and family history. There is no relevant family history pertinent to the presenting complaint Exam Narrative: GENERAL: Well-appearing, well-nourished, and in no acute distress. HEAD: Normocephalic EYES: PERRLA, conjunctivae clear ENT: Nares clear. Mucous membranes moist. TM pearly kincaid with dull light reflex bilaterally; no tragal tenderness. Oropharynx not erythematous without lesions. Tonsils not enlarged and without exudate, no drooling, no hoarseness, no trismus, uvula midline. NECK: Supple. No lymphadenopathy CHEST: Scattered rhonchi, otherwise Clear to auscultation, breath sounds equal. No wheezing, rales, or stridor. No respiratory distress, speaks in full sentences. HEART: Regular rate and rhythm. No murmur heard. SKIN: Warm, dry, no rash. NEURO: Alert and oriented x3. PSYCH: Normal mood and affect Course Course Emergency Course: Patient is aware of diagnosis, understands and agrees to treatment plan. Anticipatory guidance given. Patient agrees to follow-up as directed and is aware of reasons to seek care at the emergency department. Portions of this record may have been created with voice recognition software Level of Care: Express Care Visit Vital Signs Vital signs: Vital Signs Temperature 98.1 F 12/28/23 10:46 Pulse Rate 74 12/28/23 10:46 Respiratory Rate 20 12/28/23 10:46 Blood Pressure 125/77 12/28/23 10:46 Pulse Oximetry 97 12/28/23 10:46 Oxygen Delivery Room Air 12/28/23 10:46 Temperature 98.1 F 12/28/23 10:46 Pulse Rate 74 12/28/23 10:46 Respiratory Rate 20 12/28/23 10:46 Blood Pressure 125/77 12/28/23 10:46 Pulse Oximetry 97 12/28/23 10:46 Oxygen Delivery Room Air 12/28/23 10:46 Reviewed. MDM - URI/Sore Throat MDM Narrative Medical decision making narrative: Differential diagnosis considered: López virus, strep pharyngitis, allergic rhinitis, upper respiratory tract infection, sinusitis, rhinosinusitis, nasopharyngitis. viral pharyngitis, otitis media, otitis externa, pneumonia, bronchitis, viral cough syndrome, viral syndrome, and influenza. Exam findings show no acute concerns or changes; patient is non-toxic appearing and is in no distress. Patient is appropriate for outpatient treatment and follow-up. Lab Data Attestation: I reviewed the patient's lab results. Labs: Lab Results 12/28/23 Range/Units 11:01 POC Influenza A Ag Negative (Negative) POC Influenza B Ag Negative (Negative) POC SARS CoV-2 Ag Negative (Negative) Critical Care Time Critical Care Time Critical Care Time: No Discharge Plan Discharge Clinical Impression: Infection of lower respiratory tract Patient Disposition: Home, Self-Care Condition: Stable Instructions: Antibiotic Form, Acute Cough (ED) Additional Instructions: 1) Please follow-up with your primary care doctor in the next 1-2 days. 2) If you have any worsening of symptoms or any other urgent concerns please go to the ER. 3) Please take medications as prescribed and continue taking your home medications as usual. 4) Please read and follow information included in discharge instructions. Prescriptions: New prednisone 20 mg tablet 40 mg PO DAILY 5 Days Qty: 10 0RF doxycycline monohydrate 100 mg tablet 100 mg PO BID 7 Days Qty: 14 0RF No Action pantoprazole 40 mg tablet,delayed release (DR/EC) 40 mg PO DIRECTED escitalopram oxalate 10 mg tablet 10 mg PO DIRECTED fluticasone propionate 50 mcg/actuation spray,suspension 50 mcg INTRANASAL DIRECTED loratadine 10 mg tablet 10 mg PO DAILY budesonide-formoterol [Symbicort] 160-4.5 mcg/actuation HFA aerosol inhaler 2 puff INHALATION QID scopolamine base 1 mg over 3 days patch 3 day 1 patch transdermal Q3D PRN (Reason: motion sickness) Qty: 4 0RF Follow-up/Referrals: Ronn,Dagoberto Liu MD [Primary Care Provider] - Time of Disposition: 11:29
[2023-12-28 11:03] LABS: EDCOVIDSCREEN Negative (Negative); EDINFLUASCREEN Negative (Negative); EDINFLUBSCREEN Negative (Negative)
== END 2023-12-28 11:40 | disposition home or self-care (01) ==
PROVIDERS: Emergency Provider Nurse Practitioner; PCP Family Medicine
DX: J22 Unspecified acute lower respiratory infection (principal); Z20.822 Contact with and (suspected) exposure to COVID-19; K21.9 Gastro-esophageal reflux disease without esophagitis
CPT/HCPCS: 87426; 87804; 99213; G0463

== ENCOUNTER 2024-06-28 13:26 | Outpatient (CLI) | payer OTHER, SELFPAY ==
--- NOTE | ~2024-06-28 | MM_ITS ---
EXAMINATION: MM diagnostic nathan BI w guillermina HISTORY: Adenopathy. No discrete palpable abnormality. TECHNIQUE: Additional 3-D tomosynthesis images of the left breast were performed and synthetic 2-D im ages were generated. CAD analysis was submitted and interpreted. COMPARISON: No prior studies for comparison. BREAST PARENCHYMAL COMPOSITION: Not dense: There are scattered areas of fibroglandular density. FINDINGS: There are no suspicious masses, calcifications or architectural distortion in the left [address] to suggest malignancy. IMPRESSION: 1. No mammographic evidence for malignancy in the left breast. 2. Routine yearly screening mammogram beginning at age 40 with regular clinical breast examination ar e recommended. BI-RADS Category 1: Negative Reviewed, dictated and finalized at location B. IMPRESSION: 1. No mammographic evidence for malignancy in the left breast. 2. Routine yearly screening mammogram beginning at age 40 with regular clinical breast examination are recommended. BI-RADS Category 1: Negative
--- OUTSIDE RECORDS SUMMARY | 2024-06-28 14:51 | XMS_ITS | Clinical Summary ---
Author Organization [facility] Address [address] [place] [address] Phone Care Team Providers Care City Route Driver Name Role Phone Unavailable Primary Care Provider Unavailabl e Social History Tobacco Use Types Packs/Day Years Used Date Smoking Tobacco: Never Assessed Comments Unknown Sex and Gender Information Value Date Recorded Sex Assigned at Not on file Legal Sex Female 9:59 AM CDT Gender Identity Not on file Sexual Orientation Not on file Plan of Treatment Health Maintenance Due Date Last Done Comments Hepatitis C Virus (HCV) Screening 1987 TdaP Immunization 1987 Hepatitis B Immunization (1 of 3 - 19+ 3-dose series) 12/08/2006 Pap Smear 12/08/2008 Cervical Cancer Screening (CCS) 12/08/2017 HPV/Cotest 12/08/2017 Influenza Immunization (#1) 2023 12/01/2017 SARS-COV-2 Immunization ( season) 2023 Respiratory Syncytial Virus (RSV) Immunization (Adult) (1 - 1-dose 75+ series) 12/08/2062 DTaP/Tdap/Td Immunization Discontinued 07/26/1993 Meningococcal Immunization (ACWY) Aged Out No longer eligible based on patient's age to complete this topic Pneumococcal Immunization Combined Aged Out No longer eligible b ased on patient's age to complete this topic Rotavirus Immunization Aged Out No lo nger eligible based on patient's age to complete this topic
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
--- OUTSIDE RECORDS SUMMARY | 2024-06-28 14:51 | XMS_ITS | Clinical Summary ---
Author Organization [facility] [employer] Address [address] [place] [address] Care Team Providers Care Wire Spooler Name Role Phone Unavailable Primary Care Provider Unavailabl e Source Comments [facility] [employer],non-owned Affiliates and Associated Physician Practices is amultiple site organization consisting of ambulatory clinics and hospital sitesin [place], [place], [place] and [place]. This disclosure is being madepursuant to the Care Everywhere program and may not contain all information available regarding this patient. Last updated 17.[facility] [employer] Allergies No known active allergies Medications * Be aware that medications may not be up to date on this document. Alwaysverify current medications with the patient. No known medications Active Problems No known active problems Immunizations Immunization Administration Dates Next Due TDAP (7yrs+) 11/29/2015 Social History Tobacco Use Types Packs/Day Years Used Date Smoking Tobacco: Never Assessed Comments Unknown Sex and Gender Information Value Date Recorded Sex Assigned at Not on file Legal Sex Female 9:00 AM CDT Gender Identity Not on file Sexual Orientation Not on file Plan of Treatment Health Maintenance Due Date Last Done Comments PAP SMEAR 1987 HIV SCREENING 12/08/2002 HEPATITIS C SCREENING 12/04/2005 HEPATITIS B VACCINE (1 of 3 - 19+ 3-dose series) 12/08/2006 COVID-19 VACCINE (2023-2 5 season) 2023 DEPRESSION SCREENING 03/17/2024 INFLUENZA VACCINE (Season Ended) 2024 DTAP/TDAP/TD VACCINES (2 - T d or Tdap) 11/28/2025 11/29/2015 ZOSTER VACCINE (1 of 2) 12/08/2037 HIB VACCINE Aged Out No longer eligi ble based on patient's age to complete this topic HPV VACCINE Aged Out No longer eligi ble based on patient's age to complete this topic MENINGOCOCCAL (Group B) VACC INE SHARED DECISION-MAKING Aged Out No longer eligibl e based on patient's age to complete this topic MENINGOCOCCAL GROUPS A/C/Y/W VACCINE Aged Out No longer eligible b ased on patient's age to complete this topic PNEUMOCOCCAL VACCINE Aged Out No long er eligible based on patient's age to complete this topic Insurance
--- OUTSIDE RECORDS SUMMARY | 2024-06-28 14:51 | XMS_ITS | Clinical Summary ---
Author Organization [facility] Address [facility] [place] [address] Care Team Providers Care Rocket Engine Mechanic Name Role Phone German Hughes MD Primary Care Provider [phone] Allergies No known active allergies Medications buPROPion SR 150 MG 12 hr tablet Take 150 mg by mouth daily. 11/12/2019 Active omeprazole 20 MG capsule Take 20 mg by mouth daily. Active methocarbamol (ROBAXIN-750) 750 MG Tab Take 1 tablet (750 mg total) by mouth 4 (four) times daily as needed. 40 tablet 11/13/2021 Active Active Problems Problem Noted Date Diagnosed Date BMI 45.0-49.9, adult 11/03/2018 Elevated bilirubin 11/03/2018 Immunizations Immunization Administration Dates Next Due Dtp 07/26/1993 Influenza Adult (Generic) 12/01/2017 Opv 07/26/1993 Tdap (Generic) 11/29/2015 Family History Medical History Relation Comments Lung Disease Father Heart Disease Mother Relation Status Comments Father Mother Social History Tobacco Use Types Packs/Day Years Used Date Smoking Tobacco: Never Smokeless Tobacco: Never Alcohol Use Standard Drinks/Week Comments Yes 0 (1 standard drink = 0.6 oz pur e alcohol) occ PHQ-2 Answer Date Recorded PHQ-2 Score 1 02/21/2019 Comments No Sex and Gender Information Value Date Recorded Sex Assigned at Not on file Legal Sex Female 7:28 PM CDT Gender Identity Not on file Sexual Orientation Straight 10/06/2018 9: 52 AM CDT Occupation Industry Job Start Date Job End Date Not on file Not on file Not on file Not on file Last Filed Vital Signs Vital Sign Reading Time Taken Comments Blood Pressure 171/108 11/13/2021 6:36 PM CDT Pulse 124 11/13/2021 6:36 PM CDT Temperature 36.8 C (98.2 F) 11/13/2021 6:36 PM CDT Respiratory Rate 18 11/13/2021 6:36 PM CDT Oxygen Saturation 97% 11/13/2021 6:36 PM CDT Inhaled Oxygen Concentration - - Weight 122.5 kg (270 lb) 11/13/2021 6:36 PM CDT Height 160 cm (5' 3 ) 02/12/2021 3:37 PM TELEPHONE MAINTENANCE MECHANIC Body Mass Index 47.83 02/12/2021 3:37 PM TELEPHONE MAINTENANCE MECHANIC Plan of Treatment Health Maintenance Due Date Last Done Comments Annual Physical 12/08/1990 Hepatitis C 12/08/2005 Hepatitis B Vaccines (1 of 3 - 19+ 3-dose series) 12/08/2006 COVID-19 Vaccine (2023- season) 2023 Cervical Cancer Screening Pap Smear (Age 30 to 64) Every 3 Years 10/03/2024 10/03/2021, 10/03/2021, 10/03/2021, Additional history exists DTaP, Tdap and Td Vaccines (2 - Td or Tdap) 11/28/2025 11/29/2015, 07/26/1993 Cervical Cancer Screening Pap with HPV Testing (Age 30 to 64) Every 5 Years 10/03/2026 10/03/2021 Cervical Cancer Screening with HPV 10/03/2026 HPV Vaccines Aged Out No longer eligi ble based on patient's age to complete this topic Meningococcal B Vaccine Aged Out No l onger eligible based on patient's age to complete this topic Meningococcal Vaccine Aged Out No gordon marialuisa eligible based on patient's age to complete this topic Pneumococcal Vaccine: Pediatrics (0 to 5 Years) and At-Risk Patients (6 to 49 Years) Aged Out No longer eligible based on patient's age to complete this topic RSV Immunizations Under 20 Months Aged Out No longer eligible based on patient's age to complete this topic Insurance [facility] Care Teams Rocket Engine Mechanic Relationship Specialty Start Date End Date German Hughes MD [facility] [place] [address] PCP - General INTERNAL MEDICINE 11/24/19
--- OUTSIDE RECORDS SUMMARY | 2024-06-28 14:51 | XMS_ITS | Referral Summary ---
Author Organization [facility] Address [address] [place] [address] Care Team Providers Care Outpatient Case Manager Name Role Phone Dagoberto Diallo MD Primary Care Provider [phone] Allergies No known active allergies Medications multivitamin [...] 03/23/2024 Assessment & Plan (03/23/2024 3:19 PM CAMELID FIBER SORTER): Needs urine checked for possible UTI. Blood in the urine but she is on her. Normal period.. Psychophysiologic insomnia 08/07/2023 Severe major depression 07/18/2023 Assessment & Plan (03/23/2024 3:38 PM CAMELID FIBER SORTER): Continue Lexapro same dose but add Wellbutrin 150 mg XL Assessment & Plan (02/18/2024 3:07 PM CAMELID FIBER SORTER): Needs improvement. Now excessive sleep. We will [...] 06/27/2022 Assessment & Plan (03/19/2024 3:18 PM CAMELID FIBER SORTER): Continue Nexium at same dosage. Well controlled. Assessment & Plan (02/18/2024 3:06 PM CAMELID FIBER SORTER): Continue Nexium at same dosage. Well controlled. [...] encouraged regular use of Claritin. Problems with marketing research intern taking her insurance. We will try pulmonary referral. Assessment & Plan (08/05/2022 9:19 AM CDT): History of bronchitis frequently as a child. Pulmonary function test to be done tomorrow. On maximal medicine for allergies. Probably multifactorial. We will refer to marketing research intern. We will continue Protonix as probably some [...] 023 Assessment & Plan (02/17/2024 3:46 PM CAMELID FIBER SORTER): Continue Singulair/Claritin at same dosage. Well controlled. Assessment & Plan (07/17/2023 12:52 PM CDT): Continue Claritin/Singulair at same dosage. Well controlled. Assessment & Plan (12/30/2022 1:03 PM CDT): Continue Astelin/Claritin at same dosage. Well controlled. Assessment & Plan (09/12/2022 11:34 AM CDT): Continue Flonase/Singulair same dosage. Unable to refer to marketing research intern. Will try pulmonary. She had not been taking Claritin regularly and we will encourage her to do so. Re-evaluate 3-4 months Assessment & Plan (06/28/2022 8:44 AM CDT): Continue Singulair/Flonase n at same dosage. Well controlled. Assessment & Plan (05/29/2022 2:15 PM CDT): Improved Continue Singulair/Flonase at same dosage. Well controlled. Assessment & Plan (04/30/2022 3:20 PM CAMELID FIBER SORTER): Worsening of allergies. Using Flonase. Recommend add Singulair 10 mg. Also consider Claritin OTC. Mild major depression 04/30/2022 Assessment & Plan (04/30/2022 3:38 PM CAMELID FIBER SORTER): She is not sure how much the Wellbutrin is helping. We will taper off the Wellbutrin and start on Lexapro. Irritable bowel syndrome wit h both constipation and diarrhea 04/28/2022 Assessment & Plan (04/30/2022 3:38 PM CAMELID FIBER SORTER): Doing well off Bentyl. Morbid obesity with BMI of 50.0-59.9, adult 04/17 Assessment & Plan (03/19/2024 3:18 PM CAMELID FIBER SORTER): BMI Follow-up includes: nutrition counseling and exercise counseling. Assessment & Plan (02/17/2024 3:47 PM CAMELID FIBER SORTER): BMI Follow-up includes: nutrition counseling and exercise counseling. Assessment & Plan (07/17/2023 12:53 PM CDT): BMI Follow-up includes: nutrition counseling and exercise counseling. Assessment & Plan (12/30/2022 1:04 PM CDT): BMI Follow-up includes: nutrition counseling and exercise counseling. Assessment & Plan (09/11/2022 1:47 PM CDT): BMI Follow-up includes: nutrition counseling and exercise counseling. Assessment & Plan (04/28/2022 1:39 PM CAMELID FIBER SORTER): BMI Follow-up includes: nutrition counseling and exercise counseling. Well adult exam 03/24/2022 Gastroesophageal reflux disease without esophagi tis 03/24/2022 Assessment & Plan (03/19/2024 3:17 PM CAMELID FIBER SORTER): Continue Nexium at same dosage. Well controlled. Assessment & Plan (02/18/2024 3:06 PM CAMELID FIBER SORTER): Adequate control with [id number] Nexium except if she eats provoking foods [...] controlled. Assessment & Plan (04/30/2022 3:39 PM CAMELID FIBER SORTER): Patient has stop the omeprazole because of concern about side effects. She finds it taking OTC magnesium controls her GI symptoms well. Chronic anxiety 03/24/2022 Assessment & Plan (03/23/2024 3:39 PM CAMELID FIBER SORTER): Continue Lexapro at same dosage. Needs further [...] controlled. Assessment & Plan (04/30/2022 3:37 PM CAMELID FIBER SORTER): She is not sure if the Wellbutrin [...] Globulin, IV or IM 01/05/2016, Tdap 11/29/2015 Social History Tobacco Use Types Packs/Day [...] on file Legal Sex Female 6:06 PM CAMEL[facility] FIBER SORTER Gender Identity Not on file Sexual Orientation Not on file Last Filed Vital Signs Vital Sign Reading Time Taken Comments Blood Pressure 130/86 03/23/2024 3:00 PM CAMELID FIBER SORTER Pulse 88 03/23/2024 3:00 PM CAMEL[facility] FIBER SORTER Temperature 36.2 C (97.2 F) 03/23/2024 3:00 PM CAMELID FIBER SORTER Respiratory Rate 18 03/23/2024 3:00 PM CAMELID FIBER SORTER Oxygen Saturation 97% 03/23/2024 3:00 PM CAMELID FIBER SORTER Inhaled Oxygen Concentration - - Weight 132.5 kg (292 lb) 03/23/2024 3:00 PM CAMELID FIBER SORTER Height 160 cm (5' 2.99 ) 03/23/2024 3:00 PM CAMELID FIBER SORTER Body Mass Index 51.74 03/23/2024 3:00 PM CAMELID FIBER SORTER Plan of Treatment Not on file Insurance [facility] Care Teams Outpatient Case Manager Relationship Specialty Start Date End Date Dagoberto Diallo MD [address] [place] [address] [id number] PCP - General Family Practice 04/30/22
--- OUTSIDE RECORDS SUMMARY | 2024-06-28 14:51 | XMS_ITS | Data Portability ---
Author Organization [facility] Address [address] [place] [address] Care Team Providers Care [employer] Name Role Phone BARBARA WOO Primary Care Provider MARILEE DIGGS Primary Care Provider Assessment Encounter Date Assessment Date Assessment LastModified by Organization Details LastModified Time 10/03/2021 10/03/2021 Annual gynecological exam performed. Patient will come back in a year unless there are new symptoms. [email or web address] Not available 10/03/2021 11:47:16 05/20/2024 05/20/2024 Annual gynecological exam performed. Patient will come back in a year unless there are new symptoms. [email or web address] Not available 05/20/2024 15:58:25 Plan of Treatment Reminders Order Date Submit Date Provider Last Modified By Organization Details Last Modified Time Details Appointments None recorded. Lab CMP, serum or plasma 2023 024 [facility] (Lab), [address], [place], [address], 4 06:30:28 lipid panel, blood 2023 024 [facility] (Lab), [address] [place], [address], 4 06:30:27 CBC w/ auto diff 2023 024 [facility] (Lab), [address], [place], [address], 4 06:30:27 TSH, serum or plasma 2023 024 [facility] (Lab), [address], [place], [address], 4 06:30:28 HbA1c (hemoglobin A1c), blood 2023 024 [facility] (Lab), [address] [facility], [place], [address], 4 06:30:29 vitamin D, 25-hydroxy, total, serum 2023 024 [facility] (Lab), [address] [place], [address], 4 06:30:29 Referral None recorded. Procedures None recorded. Surgeries None recorded. Imaging MAMMO, diagnostic, digital, bilateral [address], [address], [facility] [address], [place], [address], 5 11:29:03 US, breast, bilateral, w/ axilla - bilateral axillary enlargement [address], [address], [address], [place], [address], 5 15:39:17 Medication Orders clindamycin HCl 300 mg capsule 2021 022 [email or web address] 1 [facility] #[id number], [address] [facility], [place], [place], [id number], 3 16:44:56 nystatin-tr iamcinolone 100,000 unit/gram-0 .1 % topical ointment 2021 022 [email or web address] 1 [id number], [address], [place], [place], [id number], 3 16:45:22 Patient TargetsNo targets recorded. Patient InstructionsNo instructions recorded. Reason for Referral None Reported. 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 FINAL DIAGN OSIS: Negat kendall for Intra epith elial Nikky prater or Benjamin gibbs (NIL) . Sky cordoba tobias d by Nicholas Dang am, CT on 2021 at 12:19 PM ----- ----- ----- ----- ----- ----- ----- ----- ----- ----- ----- ----- ----- ----- ----- ----- ----- ---- HPV RESUL TS: HPV mRNA E6/E7 : No HPV mRNA Detec romulo NOTE: This high risk HPV mRNA assay detec ts fourt een high- risk HPV types (16, 18, 31, 33, 35, 39, 45, 51, 52, 56, 58, 59, 66, 68) witho ut diffe renti ation . COMME NT: Note: This speci men was revie wed by a Cytot echno logis t and/o r Patho logis t (as indic ated in this repor t) after evalu ation using the Thinp rep Imagi ng Syste m. CLINI SHERRY INFOR MATIO N: Menst rual Statu s: LMP (if appli cable ): Clini sherry Histo ry/Pr eviou s Pap: Type of Neopl jan (if appli cable ): Signi fican t Clini sherry Findi ngs: Other Histo ry: Hormo francesca (if appli cable ): PAP EDUCA LEILANI L NOTE: The Pap Test is a scree betito test with an inher ent false negat kendall rate. Liqui d-bas ed sampl ing may decre ase, but will not elimi roshni, false negat kendall resul ts. A negat kendall resul t does not precl ude the prese nce and/o r devel opmen t of disea se, since the prese nce of abnor mal cells in the sampl e depen ds on the locat ion of the lesio n and sampl ing techn ique. Quang nued regul ar scree betito is the best metho d of cance r preve ntion . If repor romulo cytol ogic findi ng do not corre late with physi sherry and/o r histo rical findi ngs, furth er inves tigat ion is recom eli d, as clini martha sorensen nted. Not Available [facility] [address] [place], [address], 10/09/2021 13:22:06 10/04/19 22 10/03/2021 TRICH OMONA S VAGIN MEENAKSHI (RRNA ) trichomonas vaginalis ribosomal RNA (rrna) Negati ve negati ve Not Available [facility] [address] [place], [address], 10/09/2021 13:22:07 10/04/19 22 10/03/2021 CT/GC (COLBY) , THINP REP VIAL chlamydia trachomatis, PCR Negati ve negati ve Not Available [facility] [address], [place], [address], 10/09/2021 13:22:07 10/04/19 22 10/03/2021 CT/GC (COLBY) , THINP REP VIAL neisseria gonorrhoeae, PCR Negati ve negati ve Not Available [facility] [address] [place], [address], 10/09/2021 13:22:07 04/15/19 23 04/15/2022 CT/GC (COLBY) , SWAB chlamydia trachomatis, PCR Negati ve negati ve Not Available [facility] (Lab) [address], [place], [address], 04/16/2022 14:42:15 04/15/19 23 04/15/2022 CT/GC (COLBY) , SWAB neisseria gonorrhoeae, PCR Negati ve negati ve Not Available [facility] (Lab) [address], [place], [address], 04/16/2022 14:42:15 04/15/19 23 04/15/2022 VAGIN ITIS/ VAGIN OSIS, DNA PROBE yogesh sp. detection, direct probe Positi ve negati ve abnormal Not Available [facility] (Lab) [address], [place], [address], 04/16/2022 14:42:15 04/15/19 23 04/15/2022 VAGIN ITIS/ VAGIN OSIS, DNA PROBE gardnerella vag. detection, direct probe Negati ve negati ve Not Available [facility] (Lab) [address] [place], [address], 04/16/2022 14:42:15 04/15/19 23 04/15/2022 VAGIN ITIS/ VAGIN OSIS, DNA PROBE trichomonas vag. 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 FINAL DIAGN OSIS: Negat kendall for Intra epith elial Lesdayan prater or Benjamin gibbs (NIL) . Elect soumya cordoba tobias d by Jasbir Dooley, CT on 2023 at 2:39 PM ----- ----- ----- ----- ----- ----- ----- ----- ----- ----- ----- ----- ----- ----- ----- ----- ----- ---- HPV RESUL TS: HPV mRNA E6/E7 : No HPV mRNA Detec romulo NOTE: This high risk HPV mRNA assay detec ts fourt een high- risk HPV types (16, 18, 31, 33, 35, 39, 45, 51, 52, 56, 58, 59, 66, 68) witho ut diffe renti ation . COMME NT: This speci men was revie wed by a Cytot echno logis t and/o r Patho logis t (as indic ated in this repor t) after evalu ation using the Thinp rep Imagi ng Syste m. CLINI SHERRY INFOR MATIO N: Menst rual Statu s: LMP (if appli cable ): Clini sherry Histo ry/Pr eviou s Pap: Type of Neopl jan (if appli cable ): Signi fican t Clini sherry Findi ngs: Other Histo ry: Hormo francesca (if appli cable ): PAP EDUCA LEILANI L NOTE: The Pap Test is a scree betito test with an inher ent false negat kendall rate. Liqui d-bas ed sampl ing may decre ase, but will not elimi roshni, false negat kendall resul ts. A negat kendall resul t does not precl ude the prese nce and/o r devel opmen t of disea se, since the prese nce of abnor mal cells in the sampl e depen ds on the locat ion of the lesio n and sampl ing techn ique. Quang nued regul ar scree betito is the best metho d of cance r preve ntion . If repor romulo cytol ogic findi ng do not corre late with physi sherry and/o r histo rical findi ngs, furth er inves tigat ion is recom eli d, as clini martha sorensen nted. Not Available [facility] (Lab) [address], [place], [address], 05/08/2023 15:41:26 05/15/19 24 05/15/2023 CBC W/DIF F WBC 6.4 10'3/ uL 3.5-10 .5 Not Available [facility] (Lab) [address] [place], [address], 05/16/2023 06:30:27 05/15/19 24 05/15/2023 CBC W/DIF F RBC 4.49 10'6/ uL (based on docume nted legal sex) 3.80-5 .20 Not Available [facility] (Lab) [address], [place], [address], 05/16/2023 06:30:27 05/15/19 24 05/15/2023 CBC W/DIF F HGB 13.2 g/dL (based on docume nted legal sex) 11.6-1 5.4 Not Available [facility] (Lab) [address], [place], [address], 05/16/2023 06:30:27 05/15/19 24 05/15/2023 CBC W/DIF F HCT 41.7 % (based on docume nted legal sex) 34.0-4 5.0 Not Available [facility] (Lab) [address], [place], [address], 05/16/2023 06:30:27 05/15/19 24 05/15/2023 CBC W/DIF F MCV 92.9 fL 80.0-9 9.0 Not Available [facility] (Lab) [address], [place], [address], 05/16/2023 06:30:27 05/15/19 24 05/15/2023 CBC W/DIF F MCH 29.4 pg 27.0-3 4.0 Not Available [facility] (Lab) [address], [place], [address], 05/16/2023 06:30:27 05/15/19 24 05/15/2023 CBC W/DIF F MCHC 31.7 g/dL 32.0-3 5.5 low Not Available [facility] (Lab) [address] [place], [address], 05/16/2023 06:30:27 05/15/19 24 05/15/2023 CBC W/DIF F RDW 12.6 % 11.0-1 5.0 Not Available [facility] (Lab) [address] [place], [address], 05/16/2023 06:30:27 05/15/19 24 05/15/2023 CBC W/DIF F plt 249 10'3/ uL 150-40 0 Not Available [facility] (Lab) [address] [place], [address], 05/16/2023 06:30:27 05/15/19 24 05/15/2023 CBC W/DIF F MPV 12.8 fL 8.8-12 .1 high Not Available [facility] (Lab) [address], [place], [address], 05/16/2023 06:30:27 05/15/19 24 05/15/2023 CBC W/DIF F NRBC's 0.0 % 0.0 Not Available [facility] (Lab) [address], [place], [address], 05/16/2023 06:30:27 05/15/19 24 05/15/2023 CBC W/DIF F absolute NRBCs 0.0 10'3/ uL 0.0 Not Available [facility] (Lab) [address], [place], [address], 05/16/2023 06:30:27 05/15/19 24 05/15/2023 CBC W/DIF F neutrophils 63.9 % 34.0-7 3.0 Not Available [facility] (Lab) [address], [place], [address], 05/16/2023 06:30:27 05/15/19 24 05/15/2023 CBC W/DIF F lymphocytes 25.9 % 15.0-5 0.0 Not Available [facility] (Lab) [address], [place], [address], 05/16/2023 06:30:27 05/15/19 24 05/15/2023 CBC W/DIF F monocytes 7.1 % 1.0-15 .0 Not Available [facility] (Lab) [address] [place], [address], 05/16/2023 06:30:27 05/15/19 24 05/15/2023 CBC W/DIF F eosinophils 2.3 % 0.0-8. 0 Not Available [facility] (Lab) [address] [facility], [place], [address], 05/16/2023 06:30:27 05/15/19 24 05/15/2023 CBC W/DIF F basophils 0.5 % 0.0-2. 0 Not Available [facility] (Lab) [address] [facility], [place], [address], 05/16/2023 06:30:27 05/15/19 24 05/15/2023 CBC W/DIF F immature granulocytes 0.3 % no define d refere nce range Not Available [facility] (Lab) [address] [facility] [address], [place], [address], 05/16/2023 06:30:27 05/15/19 24 05/15/2023 CBC W/DIF F absolute neutrophils 4.1 10'3/ uL 1.5-8. 0 Not Available [facility] (Lab) [address] [facility], [place], [address], 05/16/2023 06:30:27 05/15/19 24 05/15/2023 CBC W/DIF F absolute lymphocytes 1.7 10'3/ uL 1.0-4. 0 Not Available [facility] (Lab) [address] [facility], [place], [address], 05/16/2023 06:30:27 05/15/19 24 05/15/2023 CBC W/DIF F absolute monocytes 0.5 10'3/ uL 0.2-1. 0 Not Available [facility] (Lab) [address] [facility] [address], [place], [address], 05/16/2023 06:30:27 05/15/19 24 05/15/2023 CBC W/DIF F absolute eosinophils 0.2 10'3/ uL 0.0-0. 6 Not Available [facility] (Lab) [address] [place], [address], 05/16/2023 06:30:27 05/15/19 24 05/15/2023 CBC W/DIF F absolute basophils 0.0 10'3/ uL 0.0-0. 3 Not Available [facility] (Lab) [address] [facility], [place], [address], 05/16/2023 06:30:27 05/15/19 24 05/15/2023 CBC W/DIF F absolute immature granulocytes 0.0 10'3/ uL 0.00-0 .10 024 4:52 AM: P indic ates parti al resul ts on a panel have been relea sed. Addit ional resul ts will follo w. 024 4:52 AM: This resul t has been final verif ied. No addit ional or eid ed resul ts are expec romulo. Not Available [facility] (Lab) [address], [place], [address], 05/16/2023 06:30:27 05/15/19 24 05/15/2023 LIPID PANEL ,AMA (LDL- CALC) total cholesterol 174 mg/dL 0-199 Not Available [facility] (Lab) [address], [place], [address], 05/16/2023 06:30:27 05/15/19 24 05/15/2023 LIPID PANEL ,AMA (LDL- CALC) triglyceride s 62 mg/dL 0.00-1 50.00 NCEP Refer ence Value s for Trigl yceri brenton: Agueda l: <150 mg/dL Borde rline High: 150 - 199 mg/dL High: 200 - 499 mg/dL Very High: >/= 500 mg/dL Not Available [facility] (Lab) [address], [place], [address], 05/16/2023 06:30:27 05/15/19 24 05/15/2023 LIPID PANEL ,AMA (LDL- CALC) HDL cholesterol 55 mg/dL >40 Not Available [facility] (Lab) [address], [place], [address], 05/16/2023 06:30:27 05/15/19 24 05/15/2023 LIPID PANEL ,AMA (LDL- CALC) LDL cholesterol 105 mg/dL 0-99 high Cutof f value s recom eli d by the Natio nal Morenita stero l Educa tion Progr am: TIBURCIO ABLE: Morenita stero l <200 mg/dL LDL <100 mg/dL BORDE RLINE : Morenita stero l 200-2 39 mg/dL LDL 101-1 59 mg/dL HIGHE R RISK: Morenita stero l >240 mg/dL LDL >160 mg/dL , HDL <40 mg/dL Not Available [facility] (Lab) [address], [place], [address], 05/16/2023 06:30:27 05/15/1905/15/2023 LIPID PANEL ,AMA (LDL- CALC) non-HDL cholesterol 119 mg/dL no refere nce range A reaso nable goal for non-H DL morenita stero l is one that is 30 mg/dL highe r than the LDL morenita stero l goal. Not Available [facility] (Lab) [address], [place], [address], 05/16/2023 06:30:27 05/15/1905/15/2023 LIPID PANEL ,AMA (LDL- CALC) chol/HDL ratio 3.2 . 0.0-5. 0 On July 09, 2022, [facility] labor atori everardo eid ed the equat ion for calcu latin g estim ated low-d ensit y lipop rotei n-cho leste rol (LDL- C) from the Fried adán equat ion to the Angelica prater/[facility] edel equat ion. This new equat ion is only valid for lipid panel s with trigl yceri brenton < 400 mg/dL . Adi es have demon strat ed that this new equat ion will impro ve the accur acy of LDL-C , espec ially in scena cole when LDL-C jay ntrat ions are relat ively low (< 100 mg/dL ), trigl yceri brenton are eleva romulo, or patie nt is non-f astin g. Refer ences : - Devon Gutierrez, Naveen Alarcon , Gino otrres, Aniket Chaidez, Cliff Rodriguez , and Rober Can . 2013. Comp ariso n of a Novel Metho d vs the Fried adán Equat ion for Estim ating Low-D ensit y Lipop rotei n Morenita stero l Level s from the Stand michael Lipid Profcherry le. FRANCOISE: The Journ al of the Ameri can Medic al Assoc iatio n 310 (19): 2060- . - Alley centeno V, Charlotte J, Gorge ar A, Santy M, Roma snow R, Imani centeno E, Emily lea RS, Juan José SR, Angelica prater SS. Fast ing Versu s Nonfa sting and Low-D ensit y Lipop rotei n Morenita stero l Accur acy. Circu latio n. 2017Mar 18;137 (1):1 0-19. Not Available [facility] (Lab) [address] [facility], [place], [address], 05/16/2023 06:30:27 05/15/19 24 05/15/2023 CMP(C OMPRE HENSI VE METAB OLIC PANEL ) sodium 142 mmol/ L 133-14 6 Not Available [facility] (Lab) [address] [place], [address], 05/16/2023 06:30:28 05/15/19 24 05/15/2023 CMP(C OMPRE HENSI VE METAB OLIC PANEL ) potassium 4.1 mmol/ L 3.5-5. 1 Not Available [facility] (Lab) [address] [place], [address], 05/16/2023 06:30:28 05/15/19 24 05/15/2023 CMP(C OMPRE HENSI VE METAB OLIC PANEL ) chloride 105 mmol/ L 98-107 Not Available [facility] (Lab) [address] [place], [address], 05/16/2023 06:30:28 05/15/19 24 05/15/2023 CMP(C OMPRE HENSI VE METAB OLIC PANEL ) carbon dioxide 30 mmol/ L 21-31 Not Available [facility] (Lab) [address], [place], [address], 05/16/2023 06:30:28 05/15/19 24 05/15/2023 CMP(C OMPRE HENSI VE METAB OLIC PANEL ) anion gap 7 mmol/ L 4-13 Not Available [facility] (Lab) [address], [place], [address], 05/16/2023 06:30:28 05/15/19 24 05/15/2023 CMP(C OMPRE HENSI VE METAB OLIC PANEL ) blood urea nitrogen 18 mg/dL 7-[address] [facility] (Lab) [address], [place], [address], 05/16/2023 06:30:28 05/15/19 24 05/15/2023 CMP(C OMPRE HENSI VE METAB OLIC PANEL ) creatinine 0.62 mg/dL 0.60-1 .30 Not Available [facility] (Lab) [address], [place], [address], 05/16/2023 06:30:28 05/15/19 24 05/15/2023 CMP(C OMPRE HENSI VE METAB OLIC PANEL ) egfrcr (CKD-epi 2020) >90 mL/mi n/1.7 3_m2 >=60 Not Available [facility] (Lab) [address], [place], [address], 05/16/2023 06:30:28 05/15/19 24 05/15/2023 CMP(C OMPRE HENSI VE METAB OLIC PANEL ) calcium 8.9 mg/dL 8.3-10 .5 Not Available [facility] (Lab) [address], [place], [address], 05/16/2023 06:30:28 05/15/19 24 05/15/2023 CMP(C OMPRE HENSI VE METAB OLIC PANEL ) glucose 86 mg/dL 70-100 Not Available [facility] (Lab) [address] [facility], [place], [address], 05/16/2023 06:30:28 05/15/19 24 05/15/2023 CMP(C OMPRE HENSI VE METAB OLIC PANEL ) protein, total 6.8 g/dL 6.4-8. 3 Not Available [facility] (Lab) [address] [facility], [place], [address], 05/16/2023 06:30:28 05/15/19 24 05/15/2023 CMP(C OMPRE HENSI VE METAB OLIC PANEL ) albumin 4.1 g/dL 3.5-5. 0 Not Available [facility] (Lab) [address] [facility], [place], [address], 05/16/2023 06:30:28 05/15/19 24 05/15/2023 CMP(C OMPRE HENSI VE METAB OLIC PANEL ) ALT 21 units /L 9-43 Not Available [facility] (Lab) [address], [place], [address], 05/16/2023 06:30:28 05/15/19 24 05/15/2023 CMP(C OMPRE HENSI VE METAB OLIC PANEL ) alkaline phosphatase 77 units /L 34-104 Not Available [facility] (Lab) [address] [place], [address], 05/16/2023 06:30:28 05/15/19 24 05/15/2023 CMP(C OMPRE HENSI VE METAB OLIC PANEL ) AST 15 units /L 13-39 Not Available [facility] (Lab) [address], [place], [address], 05/16/2023 06:30:28 05/15/19 24 05/15/2023 CMP(C OMPRE HENSI VE METAB OLIC PANEL ) bilirubin, total 0.7 mg/dL 0.2-1. 2 Not Available [facility] (Lab) [address], [place], [address], 05/16/2023 06:30:28 05/15/19 24 05/15/2023 TSH, REFLE X FREE T4 TSH 1.38 uIU/m L 0.30-5 .33 Not Available [facility] (Lab) [address], [place], [address], 05/16/2023 06:30:28 05/15/19 24 05/15/2023 VITAM IN D, 25-OH (TOTA L D2/D3 ) vitamin D, 25-hydroxy, total 19.4 NG/mL 30.0-1 00.0 low Sugge stive of Defic iency : <20 ng/mL Sugge stive of Insuf ficie ncy: 20-29 ng/mL Sugge stive of Suffi cienc y: 30-10 0 ng/mL Sugge stive of Toxic ity: >150 ng/mL Not Available [facility] (Lab) [address] [facility], [place], [address], 05/16/2023 06:30:29 05/15/19 24 05/15/2023 HEMOG LOBIN A1C hemoglobin A1C 5.0 % 0-5.6 The Ameri can Diabe ewelina Assoc iatio n recom mends that a prima ry goal of thera py champ d be a HBA1C of < 7% and that physi cians shoul d reeva luate the treat ment regim en in patie nts with HBA1C value s consi stent ly > 8%. <5.7% Agueda l 5.7 - 6.4% Incre ased risk for diabe ewelina >=6.5 % Diagn ostic of diabe ewelina <7.0% Goal of thera py >8.0% Actio n sugge sted Not Available [facility] (Lab) [address], [place], [address], 05/16/2023 06:30:29 Result Notes None recorded. Problems Name Problem SNOMED Code Status Onset Date Resolution Date Notes Provider Name and Address Organization Details Recorded Time Gestatio n period, 38 weeks 86516564 Completed 201508/23/2020 38 weeks gestatio n of pregnanc y;Practi ce ID: [address] [facility] 10:18:57 Normal pregnanc y in multigra preethi [id number] 4106 Completed 201508/23/2020 Encounte r for suprvsn of normal pregnanc y, third trimeste r;Practi ce ID: 0001 Adilia Burton [facility] 10:19:22 Non-prot einuric hyperten leilani of pregnanc y [id number] Completed 201508/23/2020 Gestatnl htn without signific ant protein, comp childbir th;Pract ice ID: [address] [facility] 10:19:20 Steriliz ation procedur e Completed 201508/23/2020 Encounte r for steriliz ation;Pr actice ID: 0001 [facility]:19:45 Single live [id number] Completed 201508/23/2020 Single live ;Pr actice ID: 0001 Adilia collins, [facility] 10:19:32 Gestatio n period, 39 weeks [id number] Completed 201508/23/2020 39 weeks gestatio n of pregnanc y;Practi ce ID: 0001 Adilia collins, [facility] 10:19:14 Single liveborn born in hospital by section [id number] Completed 201508/23/2020 Single liveborn infant, delivere d by ;Practic e ID: 0001 Adilia Burton [facility], [facility] 10:19:34 Acute vaginiti s [id number] Completed 201508/23/2020 Acute vaginiti s;Astridti ce ID: 0001 Adilia Burton [facility] 10:18:30 Lochia finding Completed 201508/23/2020 Encounte r for routine postpart um follow-u p;Practi ce ID: 0001 Adilia collins [facility] 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 10:19:41 Atypical squamous cells of undeterm ined signific ance on cervical Papanico laou smear [id number] Completed 201808/23/2020 Atyp squam cell of undet signfc cyto smr crvx (ASC-US) ;Practic e ID: [id number] Adilia Burton [facility] 10:18:[address] Concept Completed 201508/23/2020 Decrease d movement s, third trimeste r, unsp;Rec orded Elsewher e: No Locat ion: Rabia snow [facility] S ource: EHR Certified Adaptive Physical Educator sophia: N Erma ce ID: [id number] Alli lable Time: 03:00:00 PM Adilia collins [facility] 10:19:37 Pre-exis ting hyperten leilani in obstetri c context [id number] Completed 201508/23/2020 Unsp pre-exis ting htn comp pregnanc y, third trimeste r;Record ed Elsewher e: No Locat ion: Rabia [facility] S ource: EHR Certified Adaptive Physical Educator sophia: N Astridti ce ID: [id number] Alli lable Time: 03:00:[address] [facility] 1 10:19:[address] Concept Completed 201508/23/2020 Anxiety; Recorded Elsewher e: No Locat ion: [facility] edy [facility] S ource: EHR Certified Adaptive Physical Educator sophia: N Practi ce ID: 0001 Alli lable Time: 11:15:[address] [facility] 1 10:19:36 Gestatio n period, 34 weeks [id number] Completed 201508/23/2020 34 weeks gestatio n of pregnanc y;Record ed Elsewher e: No Locat ion: [facility] edy [facility] S ource: EHR Certified Adaptive Physical Educator sophia: N Practi ce ID: 0001 Alli lable Time: 03:00:[address] [facility] 1 10:18:50 Dysfunct ional uterine bleeding Completed 201408/23/2020 Other disorder s of menstrua tion and other abnormal bleeding from female genital tract;Re corded Elsewher e: No Locat ion: [facility] edy [facility] S ource: EHR Certified Adaptive Physical Educator sophia: N Practi ce ID: 0001 Alli lable Time: 11:00:[address] [facility] 1 10:18:37 Pregnanc y detectio n examinat ion Completed 201508/23/2020 Encounte r for pregnanc y test, result positive ;Recorde d Elsewher e: No Locat ion: [facility] edy [facility] S ource: EHR Certified Adaptive Physical Educator sophia: N Practi ce ID: 0001 Alli lable Time: 02:45:[address] [facility] 1 10:19:26 Secondar y amenorrh ea [id number] Completed 201508/23/2020 Secondar y amenorrh ea;Recor ded Elsewher e: No Locat ion: [facility] S ource: EHR Certified Adaptive Physical Educator sophia: N Practi ce ID: 0001 Alli lable Time: 02:45:00 PM Adilia Burton [facility] 10:19:29 Gestatio n period, 33 weeks [id number] Completed 201508/23/2020 33 weeks gestatio n of pregnanc y;Record ed Elsewher e: No Locat ion: [place] snow [facility] S ource: EHR Certified Adaptive Physical Educator sophia: N Practi ce ID: 0001 Alli lable Time: 10:00:[address] [facility] 10:18:48 Amenorrh ea [id number] Completed 201408/23/2020 Absence of menstrua tion;Rec orded Elsewher e: No Locat ion: [facility]: N Astridti ce ID: 0001 Alli lable Time: 10:15:[address] [facility] 10:18:[address] Concept Completed 201708/23/2020 Encntr for general adult medical exam w/o abnormal findings ;Recorde d Elsewher e: No Locat ion: [facility] edy [facility]: N Astridti ce ID: 0001 Alli lable Time: 03:30:00 PM Adilia Burton [facility] 10:19:39 Gestatio n period, 35 weeks [id number] Completed 201508/23/2020 35 weeks gestatio n of pregnanc y;Record ed Elsewher e: No Locat ion: [place] snow [facility] S ource: EHR Certified Adaptive Physical Educator sophia: N Practi ce ID: 0001 Alli lable Time: 03:00:00 PM Adilia Burton [facility] 10:18:52 Completed 201408/23/2020 Terminat ion of pregnanc y;Record ed Elsewher e: No Locat ion: [place] edy [facility] S ource: EHR Certified Adaptive Physical Educator sophia: N Practi ce ID: 0001 Alli lable Time: 10:00:00 AM Adilia Burton [facility] 1 10:18:27 Gestatio n period, 31 weeks [id number] Completed 201508/23/2020 31 weeks gestatio n of pregnanc y;Record ed Elsewher e: No Locat ion: [place] edy [facility] S ource: EHR Certified Adaptive Physical Educator sophia: N Practi ce ID: 0001 Alli lable Time: 05:10:[address] [facility] 10:18:44 Gestatio n period, 37 weeks [id number] Completed 201508/23/2020 37 weeks gestatio n of pregnanc y;Record ed Elsewher e: No Locat ion: [place] snow [facility] S ource: EHR Certified Adaptive Physical Educator sophia: N Practi ce ID: 0001 Alli lable Time: 03:00:00 PM Adilia Burton [facility] 1 10:18:56 Gestatio n period, 32 weeks [id number] Completed 201508/23/2020 32 weeks gestatio n of pregnanc y;Record ed Elsewher e: No [facility] S ource: EHR Certified Adaptive Physical Educator sophia: N Practi ce ID: 0001 Alli lable Time: 03:00:00 PM Adilia Burton [facility] 10:18:46 Finding of contents of cervix [id number] Completed 201508/23/2020 Weeks of gestatio n of pregnanc y not specifie d;Record ed Elsewher e: No [facility] S ource: EHR Certified Adaptive Physical Educator sophia: N Practi ce ID: 0001 Alli lable Time: 05:00:00 PM Adilia Burton [facility] 1 10:18:40 Morbid obesity [id number] Completed 201408/23/2020 Morbid obesity; Practice ID: [address] [facility] 10:19:18 Speciali zed medical examinat ion Completed 201408/23/2020 Routine gynecolo gical examinat ion;Prac domingo ID: [address] [facility] 10:19:43 Pregnanc y test positive [id number] Completed 201408/23/2020 Positive Pregnanc y Test;Pra ctice ID: [address] [facility] 10:19:28 Uterine size for dates discrepa ncy Completed 201508/23/2020 Uterine size-hoang e discrepa ncy, first trimeste r;Practi ce ID: [address] [facility] 10:19:47 Severe obesity complica ting pregnanc y [id number] 026793 Completed 201508/23/2020 Obesity complica ting pregnanc y, third trimeste r;Practi ce ID: [address] [facility] 10:19:30 Gestatio n period, 36 weeks [id number] Completed 201508/23/2020 36 weeks gestatio n of pregnanc y;Practi ce ID: [address] [facility] 10:18:54 Gestatio n less than 9 weeks [id number] Completed 201508/23/2020 Less than 8 weeks gestatio n of pregnanc y;Record ed Elsewher e: No Locat ion: [place] snow [facility] S ource: EHR Certified Adaptive Physical Educator sophia: N Practi ce ID: 0001 Alli lable Time: 02:45:[address] [facility] 10:18:42 Finding of body mass index 148930588 Completed 201508/23/2020 Body mass index (BMI) 40.0-44. 9, adult;Re corded Elsewher e: No Locat ion: [place] snow [facility] S ource: EHR Certified Adaptive Physical Educator sophia: N Practi ce ID: 0001 Alli lable Time: 02:45:[address] [facility] 10:18:39 Problem Notes None recorded. Procedures Surgical History Date Name Laterality Status Provider Name and Address Organization Details Recorded Time 10/04/19 22 Date of Last Pap Smear completed JUVECHI [facility] 05/20/2024 16:02:10 03/17/19 21 cholecystectomy completed [facility] 04/15/2022 16:46:49 03/17/19 16 section completed [facility] 08/23/2020 10:26:27 03/17/19 16 ligation of bilateral fallopian tubes completed [facility] 08/23/2020 10:27:03 03/17/19 15 termination of completed [facility] 04/15/2022 16:38:03 01/16/20 09 termination of completed [facility] 04/15/2022 16:37:59 03/17/19 09 section completed [facility] 08/23/2020 10:26:37 Tubal Ligation completed Jolie Kennedy [facility] 05/02/2023 10:03:08 Caesarean Section completed [facility] 05/20/2024 16:02:11 Imaging Results None recorded. Procedure Notes None recorded. Medical Equipment None Reported. Allergies No known drug allergies Medications Name Sig Start Date Stop Date Status Note LastModified by Organization Details LastModified Time quetiapin e 25 mg tablet 05/20 completed Not Available Not Available Not Available bupropion HCl SR 150 mg tablet,12 hr sustained -release 05/02 completed Not Available Not Available Not Available clindamyc in HCl 300 mg capsule Take 1 capsule twice a day by oral route for 7 days. 04/15 completed Not Available Not Available Not Available azithromy macey 250 mg tablet 10/03 completed Not Available Not Available Not Available ibuprofen 800 mg tablet TAKE 1 TABLET BY MOUTH THREE TIMES A DAY NEEDED 04/15 completed Not Available Not Available Not Available nystatin 100,000 unit/gram topical ointment APPLY TO THE AFFECTED AREA(S) BY TOPICAL ROUTE 2 TIMES PER DAY 04/15 completed Not Available Not Available Not Available fluconazo le 150 mg tablet take 1 tablet now and repeat in 72 hours 05/02 completed Not Available Not Available Not Available hydrocodo ne 5 mg-acetam inophen 325 mg tablet TAKE 1 TABLET BY MOUTH EVERY 6 HOURS FOR UP TO 10 DOSES NEEDED FOR PAIN active Not Available Not Available No t Available prednison e 20 mg tablet TAKE 2 TABLETS BY MOUTH DAILY FOR 5 DAYS 05/20 completed Not Available Not Available Not Available penicilli n V potassium 500 mg tablet TAKE 1 TABLET BY MOUTH EVERY 12 HOURS FOR 10 DAYS 05/20 completed Not Available Not Available Not Available sulfameth oxazole 800 mg-trimet hoprim 160 mg tablet 04/15 completed Not Available Not Available Not Available omeprazol e 40 mg capsule,d elayed release active Not Available Not Available Not Available doxycycli ne monohydra te 100 mg tablet TAKE 1 TABLET BY MOUTH TWICE DAILY FOR 7 DAYS 05/20 completed Not Available Not Available Not Available acetamino phen 500 mg tablet TAKE 2 TABLETS BY MOUTH EVERY 8 HOURS FOR 5 DAYS 04/15 completed Not Available Not Available Not Available amoxicill in 500 mg tablet take 1 tablet by oral route 3 times every day for 10 days 05/02 completed Not Available Not Available Not Available nystatin- triamcino lone 100,000 unit/gram -0.1 % topical ointment APPLY TOPICALL Y TO THE AFFECTED AREA TWICE DAILY 04/15 completed Not Available Not Available Not Available alprazola m 0.25 mg tablet take 1 tablet by oral route 3 times every day active Not Available Not Available No t Available methocarb declan 750 mg tablet 04/15 completed Not Available Not Available Not Available Zoloft 50 mg tablet take 1 tablet by oral route every day 08/08 completed Prescrib ed Elsewher e: No [facility] By: richi soares DateTime : 02/20/20 16 11:15:00 AM Not Available Not Available Not Available Synthroid 25 mcg tablet TAKE ONE TABLET BY MOUTH ONCE DAILY 08/08 completed Prescrib ed Elsewher e: No [facility] odify By: richi soares DateTime : 02/14/20 16 08:33:27 AM Not Available Not Available Not Available ciproflox acin 0.3 % eye drops 05/02 completed Not Available Not Available Not Available benzonata te 100 mg capsule TAKE 1-2 CAPSULES BY MOUTH EVERY 8 HOURS NEEDED FOR COUGH 04/15 completed Not Available Not Available Not Available cephalexi n 500 mg capsule TAKE 1 CAPSULE BY MOUTH 4 TIMES A DAY FOR 5 DAYS 05/20 completed Not Available Not Available Not Available pantopraz ole 40 mg tablet,de layed release 05/20 completed Not Available Not Available Not Available triamcino lone acetonide 0.1 % topical ointment APPLY A THIN LAYER TO THE AFFECTED AREA(S) BY TOPICAL ROUTE 2 TIMES PER DAY 04/15 completed Not Available Not Available Not Available lidocaine 5 % topical patch 04/15 completed Not Available Not Available Not Available bupropion HCl 75 mg tablet 05/02 completed Not Available Not Available Not Available omeprazol e 20 mg capsule,d elayed release 05/02 completed Not Available Not Available Not Available monteluka st 10 mg tablet 05/02 completed Not Available Not Available Not Available azelastin e 137 mcg (0.1 %) nasal spray 05/02 completed Not Available Not Available Not Available ibuprofen 600 mg tablet 04/15 completed Not Available Not Available Not Available scopolami ne 1 mg over 3 days transderm al patch 05/02 completed Not Available Not Available Not Available methylpre dnisolone 4 mg tablets in a dose pack 10/03 completed Not Available Not Available Not Available albuterol sulfate HFA 90 mcg/actua tion aerosol inhaler active Not Available Not Available Not Available Vitamin D2 1,250 mcg (50,000 unit) capsule take 1 capsule by oral route every week 01/11 completed Prescrib ed Elsewher e: No Locat ion: [facility] odify By: myranda sorensen DateTime : 07/12/19 09:48:34 AM Not Available Not Available Not Available ondansetr on 4 mg disintegr ating tablet 04/15 completed Not Available Not Available Not Available fluticaso ne propionat e 50 mcg/actua tion nasal spray,brina pension 05/02 completed Not Available Not Available Not Available Diflucan 200 mg tablet Take 1 tablet every other day x 3 doses. 10/19 completed Not Available Not Available Not Available loratadin e 10 mg tablet 05/02 completed Not Available Not Available Not Available naproxen 500 mg tablet TAKE 1 TABLET BY MOUTH TWICE A DAY NEEDED FOR PAIN 05/02 completed Not Available Not Available Not Available spironola ctone 50 mg tablet take 1 tablet by oral route 2 times every day 06/08 completed Prescrib ed Elsewher e: No Locat ion: [facility] odify By: frances asher DateTime : 09/03/19 01:28:57 PM Not Available Not Available Not Available amoxicill in 875 mg-potass ium clavulana te 125 mg tablet TAKE 1 TABLET BY MOUTH EVERY 12 HOURS FOR 10 DAYS 04/15 completed Not Available Not Available Not Available amoxicill in 500 mg-potass ium clavulana te 125 mg tablet 04/15 completed Not Available Not Available Not Available escitalop page 10 mg tablet Take 1 tablet every day by oral route. 05/20 completed Not Available Not Available Not Available escitalop page 20 mg tablet active Not Available Not Available Not Available aripipraz ole 5 mg tablet 05/20 completed Not Available Not Available Not Available bupropion HCl XL 150 mg 24 hr tablet, extended release active Not Available Not Available Not Available nitrofura ntoin monohydra te/macroc rystals 100 mg capsule 05/02 completed Not Available Not Available Not Available Wellbutri n 04/15 completed Not Available Not Available Not Available Symbicort 160 mcg-4.5 mcg/actua tion HFA aerosol inhaler 05/02 completed Not Available Not Available Not Available cholecalc iferol (vitamin D3) 1,250 mcg (50,000 unit) capsule TAKE 1 CAPSULE BY MOUTH EVERY WEEK. active Not Available Not Available No t Available Lo Loestrin Fe 1 mg-10 mcg (24)/10 mcg (2) tablet Take 1 tablet every day by oral route. 04/23 completed Not Available Not Available Not Available Triveen-D uo DHA 29 mg-1 mg-400 mg oral pack take 2 by Oral route once for 30 days 07/04 completed Prescrib ed Elsewher e: No Locat ion: [facility] odify By: keron sorensen DateTime : 06/06/19 02:45:00 PM Not Available Not Available Not Available OptiChamb er Dariela [facility] spacer 04/15 completed Not Available Not Available Not Available Multi Vitamin 9 mg iron/15 mL oral liquid 04/23 completed Prescrib ed Elsewher e: Yes Loca tion: [facility] odify By: ghislaine sorensen DateTime : 04/15/19 08:45:00 AM Not Available Not Available Not Available Vitals Date Recorded Body height Body mass index (BMI) Body weight Systolic blood pressure Diastolic blood pressure Provider Name and Address Organization Details Last Updated DateTime 04/23/2021 160.02 cm 48.2 kg/m2 168746.1 2 g 136 mm[Hg] 88 mm[Hg] Barbara Chanel [facility] 18:15:45 Date Recorded Body height Body mass index (BMI) Body weight Systolic blood pressure Diastolic blood pressure Provider Name and Address Organization Details Last Updated DateTime 10/03/2021 160.02 cm 50.3 kg/m2 011971.2 3 g 110 mm[Hg] 78 mm[Hg] Jennifer Cobb [facility] 2 11:47:36 Date Recorded Body height Body mass index (BMI) Body weight Systolic blood pressure Diastolic blood pressure Provider Name and Address Organization Details Last Updated DateTime 04/15/2022 160.02 cm 48.4 kg/m2 186552.7 2 g 149 mm[Hg] 84 mm[Hg] Jackie Alston [facility] 3 16:44:09 Date Recorded Body weight Systolic blood pressure Diastolic blood pressure Provider Name and Address Organization Details Last Updated DateTime 05/02/2023 311709.97 g 130 mm[Hg] 81 mm[Hg] Jolie Kennedy [facility] 05/02/2023 10:02:44 Date Recorded Body height Body mass index (BMI) Body weight Systolic blood pressure Diastolic blood pressure Provider Name and Address Organization Details Last Updated DateTime 05/20/2024 160.02 cm 52.3 kg/m2 746862.7 5 g 129 mm[Hg] 83 mm[Hg] JUVE Monzon [facility] 5 16:01:46 Social History Question Answer Notes LastModified by Organizat ion Details LastModified Time Tobacco Smoking Status Never Smoker Jackie Alston [facility] 04/15/2022 16:44:39 Do You Have An Advance Directive? No [email or web address] Information not available 04/15/2022 What Is Your Level Of Alcohol Consumption? Occasional [email or web address] Information not available 04/15/2022 Are You Blind Or Do You Have Difficulty Seeing? No Information not available 08/23/2020 What Is Your Level Of Caffeine Consumption? Moderate [email or web address] Information not available 05/20/2024 How Much Tobacco Do You Chew? None [email or web address] Information not available 04/15/2022 In The 14 Days Before Symptom Onset, Have You Had Close Contact With A Laboratory-[facility] COVID-19 While That Case Was Ill? No [email or web address] Information not available 04/15/2022 In The 14 Days Before Symptom Onset, Have You Had Close Contact With A Person Who Is Under Investigation For COVID-19 While That Person Was Ill? No [email or web address] Information not available 04/15/2022 Have You Been To An Area Known To Be High Risk For COVID-19? No [email or web address] Information not available 04/15/2022 Are You Deaf Or Do You Have Serious Difficulty Hearing? No Information not available 08/23/2020 What Type Of Diet Are You Following? REGULAR Information not available 08/23/2020 What Is The Highest Grade Or Level Of School You Have Completed Or The Highest Degree You Have Received? 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 No [email or web address] Information not available 05/02/2023 Do You Use Protection During Sex? No Information not available 04/15/2022 Do You Use Your Seat Belt Or Car Seat Routinely? Yes Information not available 08/23/2020 Do You Have Smoke And Carbon Monoxide Detectors In Your Home? Yes Information not available 08/23/2020 At What Age Did You Start Smoking Tobacco? 2 [email or web address] Information not available 05/20/2024 How Much Tobacco Do You Smoke? No [email or web address] Information not available 04/15/2022 Do You Feel Stressed (tense, Restless, Nervous, Or Anxious, Or Unable To Sleep At Night)? [id number] Information not available 08/23/2020 Do You Use Any Illicit Or Recreational Drugs? No Information not available 08/23/2020 Do You Use Sunscreen Routinely? Yes Information not available 08/23/2020 How Many Years Have You Smoked Tobacco? 0 [email or web address] Information not available 05/20/2024 Have You Used IV Drugs? No [email or web address] Information not available 04/15/2022 Sex: Unknown Functional Status Question Answer Note LastModified by Organizat ion Details LastModified Time Do you have difficulty walking or climbing stairs? No [email or web address] Information not available 04/15/2022 Are you able to walk? [email or web address] Information not available 08/23/2020 Are you able to care for yourself? Yes [email or web address] Information not available 04/15/2022 Do you have difficulty dressing or bathing? No [email or web address] Information not available 04/15/2022 What is your exercise level? Moderate Information not available 08/23/2020 Mental Status None recorded. Family History Relationship Description Onset Age of this Age Resolved Age Notes LastModified by Organization Details LastModified Time Mother Myocardial infarction Not available 08/23 10:25:25 Medical History Condition Response Allergies (Food, seasonal, environmental ) Y Other N Drug/Latex Allergies/Reactions N Blood Transfusion N Breast Cancer N Dermatologic Disorders N Lung Disease N Defects or Inherited Disease N Breast Problem N Gestational Diabetes N Hematologic disorders N Anesthesia Complications N History of STI N Deep Vein Thrombosis N Polycystic ovary syndrome N Anxiety Disorder Y Autoimmune disease N Arthritis N Polyps N Infertility N Acid Reflux (GERD) Y History of abnormal pap N Cancer N Varicosities N Stroke N Neurologic/Epilepsy N Endometriosis N High Cholesterol N Fibromyalgia N Headaches N Kidney Disease N Heart Problems N Thyroid Problems N Kidney or Bladder Problems N GI Problems N Eating Disorder N Anemia N Art (IVF or FET) N Psychiatric Illness N Ovarian Cancer N Diabetes N Pulmonary (TB, Asthma) N Hepatitis/Liver Disease N No Past Medical History N Eczema N Urinary Tract Infection N Abuse/Domestic Violence N Asthma Y Trauma/Violence N Depression/ depression Y Heart Disease N Pre-Eclampsia N Hypertension N Osteoporosis N Thrombophilias N Gynecological History Statement/Question Response Abnormal Pap Y Flow Moderate Date of LMP 05/11/2024 On BCP's at Conception? N N Was last menstrual period normal Y STIs/STDs N HPV Vaccine N Duration of Flow (days) 5 10 Current Control Method Tubal Ligat ion Age at First Child 22 Are cycles usually normal Y Frequency of Cycle (Q days) 24 Sexually Active? Y Menses Monthly Y Age of first menstrual cycle 12 Date of Last Pap Smear 10/03/2021 Sexual Problems? N LMP Approximate N Obstetrics History GPAL:G 4 P 2 0 2 2 Type Value Full Term 2 Induced 2 Living 2 Total 4 Past Encounters Encounter ID Performer Location Encounter Start Date Encounter Closed Date Diagnosis/Indication Diagnosis SNOMED-CT Code Diagnosis ICD10 Code Diagnosis Note [id number] Jessica Hong , [facility] [address] [address] 09/29/2020 10:06:47 09/29/2020 11:07:21 Gynecologic examination [id number] Z01.419 Take Calcium with Vitamin D 1200mg daily if not receiving in daily diet. It is strongly advised to have an annual flu shot and up can obtain at most pharmacies . If you have not had a TDap shot in the last 10 years you should obtain one as well. Discussed with patient & provided with informatio n regarding Gardisil vaccine to prevent the 4 strains for HPV that cause cervical cancer if under age 26. Encourage safe sexual practices, to use condoms and limit partners if not already in a monogamous relationsh ip. Do monthly self breast exams. Have mammogram yearly or every other year depending on family history. BRCA testing is now available for patients with strong genetic history of female cancer. If interested contact the office. Engage in daily exercise of low impact aerobic exercise 45-60 minutes 4-5 times weekly. Avoid tobacco and illicit drugs as well as using moderation with alcohol intake less than 1-2 8 oz beverages daily. This lifestyle behavior pattern will lead to less health conditions and longer life span. If BMI greater than 25 weight watchers or dietary consult advised. Patient received above instructio ns, and questions have been answered. If you have any questions please call or respond to this email. Patient was made aware of the patient portal and may obtain a paper copy of today's plan if desired. pap/hpv updated Vaginitis [id number] N76.0 Suspect yeast & irritation from new soap she was usingRecom mend vag moisturizi ng & changes soaps; use diflucan Pain in pelvis [id number] R10.2 Right sided pelvic pain x 1wkExam +right adnexal painWill update US Female hirsutism [id number] L68.0 Feels increased hair growth along chin bilaterall y.Will order labs to ensure no issuesMens es are regular. [id number] Riana Coto [place] [address] [address] 10/03/2020 09:32:48 10/03/2020 10:13:16 Pain in pelvis [id number] R10.2 [id number] Stephania Burton [facility] [address],[place] [address] 12/15/2020 09:30:47 12/15/2020 10:13:32 Cyst of right ovary [id number] N83.291 [id number] Triny Hodges [facility] [address],[place] [address] 04/23/2021 18:11:18 04/23/2021 18:32:33 Health condition feared but not present [id number] Z71.1 Pt was concerned about possible retained tampon. Speculum and digital exam done and no tampon in the vagina. If GI symptoms do not improve will need to see pcp. If any continued cramping or pelvic discomfort after cessation of cycle she will return for follow up. [id number] [facility] [address],[place] [address] 10/03/2021 11:33:35 10/03/2021 18:03:41 Gynecologic examination [id number] Z01.419 Z11.51 Take Calcium with Vitamin D 1200mg daily if not receiving in daily diet. It is strongly advised to have an annual flu shot and up can obtain at most pharmacies . If you have not had a TDap shot in the last 10 years you should obtain one as well. Discussed with patient & provided with informatio n regarding Gardisil vaccine to prevent the 4 strains for HPV that cause cervical cancer if under age 26. Encourage safe sexual practices, to use condoms and limit partners if not already in a monogamous relationsh ip. Do monthly self breast exams. Have mammogram yearly or every other year depending on family history. BRCA testing is now available for patients with strong genetic history of female cancer. If interested contact the office. Engage in daily exercise of low impact aerobic exercise 45-60 minutes 4-5 times weekly. Avoid tobacco and illicit drugs as well as using moderation with alcohol intake less than 1-2 8 oz beverages daily. This lifestyle behavior pattern will lead to less health conditions and longer life span. If BMI greater than 25 weight watchers or dietary consult advised. Patient received above instructio ns, and questions have been answered. If you have any questions please call or respond to this email. Patient was made aware of the patient portal and may obtain a paper copy of today's plan if desired. Pap/hpv sentSTD Screen sentGeneti c Screen discussedC olon Screen naDexa ScreennaRo utine LabsUTD PCPMammo na Vaginitis [id number] N76.0 Labial cyst right inner labia minoraSent abxOintmen t for irritation around this area. [id number] Triny Hodges [facility] [address],[place] [address] 04/15/2022 16:28:06 04/15/2022 17:50:14 Vaginitis [id number] N76.0 Discussed use of mild soap like dove or ivory, cotton underwear w/out dye, hypoallerg enic detergent, wipe from front to back, avoid tub baths, keep perineum clean and dry, d/c use of baby wipes. Encouraged daily intake of yogurt or womens health probiotic. Internal and external affirm collected along with STD screen. Pt will finish the 7 day monistat while waiting for results. [id number] JODIE Rodriguez [facility] [address],[place] [address] 05/02/2023 09:52:14 05/02/2023 10:50:45 Gynecologic examination [id number] Z01.419 [facility] - BTLpap updatedSTI testing declinedRT C in 1 yr or sooner if needed Take Calcium with Vitamin D daily if not receiving in daily diet.It is strongly advised to have an annual flu shot and up can obtain at most pharmacies . If you have not had a TDap shot in the last 10 years you should obtain one as well. Discussed with patient & provided with informatio n regarding Gardisil vaccine to prevent the 4 strains for HPV that cause cervical cancer if under age 26.Encoura ge safe sexual practices, to use condoms and limit partners if not already in a monogamous relationsh ip.Do monthly self breast exams. Engage in daily exercise of low impact aerobic exercise 45-60 minutes 4-5 times weekly. Avoid tobacco and illicit drugs. This lifestyle behavior pattern will lead to less health conditions and longer life span. If BMI greater than 25 dietary consult advised.Pa tient received above instructio ns, and questions have been answered. If you have any questions please call or respond to this email. Patient was made aware of the patient portal and may obtain a paper copy of today's plan if desired. Adult heal th examination [id number] Z00.00 fasting labs ordered [id number] JODIE Rodriguez [facility] [address] [address] 05/20/2024 15:46:24 05/24/2024 08:45:06 Gynecologic examination [id number] Z01.419 Z11.51 [facility] - BTLPap - UTD/not indicated todaySTI screen - declinedRo utine labs - PCPRTC in 1 yr or sooner if needed It is strongly advised to have an annual flu shot and up can obtain at most pharmacies . If you have not had a TDap shot in the last 10 years you should obtain one as well. Discussed with patient & provided with informatio n regarding the HPV vaccine if applicable . Encourage safe sexual practices, to use condoms and limit partners if not already in a monogamous relationsh ip. Do monthly self breast exams. BRCA testing is now available for patients with strong genetic history of female cancer. If interested contact the office. Engage in regular exercise. Avoid tobacco and illicit drugs. This lifestyle behavior pattern will lead to less health conditions and longer life span. If BMI greater than 25 dietary consult advised. Questions answered. Axillary lymphadenopathy [id number] R59.0 Health Concerns Section Related Observation LastModified by Organization Detai ls LastModified Time None Recorded Concern Status LastModified by Organization Details LastModified Time None Recorded Advance Directives Directive N: Payers Encounter Date Sequence Insurance Name Policy Number Policy Jordan Covered Member ID Jordan Member ID Guarantor Name 04/23/2021 1 [facility] ON OR AFTER 09/14/20 (MEDICAID REPLACEMENT - HMO) Marla Boswell [id number] Marla Boswell 10/03/2021 1 [facility] ON OR AFTER 09/14/20 (MEDICAID REPLACEMENT - HMO) Marla Boswell [id number] Marla Boswell 04/15/2022 1 [facility] ON OR AFTER 09/14/20 (MEDICAID REPLACEMENT - HMO) Marla Boswell [id number] Marla Boswell 05/02/2023 1 [facility] - [facility] ON OR AFTER 20 (MEDICAID REPLACEMENT - HMO) Marla Boswell [id number] Marla Prater Boswell 05/20/2024 1 [facility] - DOS ON OR AFTER 20 (MEDICAID REPLACEMENT - HMO) Marla Boswell [id number] Marla Boswell Notes Date Note Type Note Provider Name and Address Organization Details Recorded Time 04/23/2021 text/html Pt concerned she may have a retained tampon since Friday evening.A little cramping/pelvic discomfort, nausea and vomiting.No fever, discharge or odor. Triny collins [facility] 04/23/2021 18:31:11 10/03/2021 text/html Annual GYNReport ed bypatient.Menstrual cycle:Normal menses Urinary symptoms:No hematuria; No incontinence Vulva:No genital lesion Vagina:Normal vaginal discharge Breast:No breast pain; No breast lump; No nipple discharge Current Contraception:Satisf ied with current contraception; Condoms Sexual complaints:No sexual complaints; No pain during intercourse; Normal libido Menopausal Symptoms:No menopausal symptoms; Normal vaginal lubrication Psychological symptoms:No depression; No anxiety; No PMDD Preventive measures:Encourage self breast examination; Encourage regular exercise; Encourage no tobacco use; Encourage regular mammograms starting age 40; Followed with yearly pap smears Jessica Hong, ALANIS- [address], [place], [address], [facility] 10/03/2021 17:31:53 04/15/2022 text/html Vaginal/Vulvar ProblemReported bypatient.Notes:Itch ing, sore, swollenUsed a different brand of tamponsRecent antibiotics for illness Triny collins [facility] 04/15/2022 17:49:47 05/02/2023 text/html Annual GYNReport ed bypatient.Menstrual cycle:Normal menses Urinary symptoms:No hematuria; No incontinence Vulva:No genital lesion Vagina:Normal vaginal discharge Breast:No breast pain; No breast lump; No nipple discharge Current Contraception:Satisf ied with current contraception; Tubal ligation Sexual complaints:No sexual complaints; No pain during intercourse; Normal libido Menopausal Symptoms:No menopausal symptoms; Normal vaginal lubrication Psychological symptoms:No depression; No anxiety; No PMDD Preventive measures:Encourage self breast examination; Encourage regular exercise; Encourage no tobacco use; Encourage regular mammograms starting age 40Notes:pap last 2021 - normalh/o abnormal pap 2017, no procedures required per ptBTL for BC JODIE Rodriguez [address], [place], [address], [facility] 05/02/2023 10:58:54 05/20/2024 text/html Annual GYNReport ed bypatient.Menstrual cycle:Normal menses Urinary symptoms:No hematuria; No incontinence Vulva:No genital lesion Vagina:Normal vaginal discharge Breast:No breast pain; No breast lump; No nipple discharge Current Contraception:Satisf ied with current contraception; Tubal ligation Sexual complaints:No sexual complaints; No pain during intercourse; Normal libido Menopausal Symptoms:No menopausal symptoms; Normal vaginal lubrication Psychological symptoms:No depression; No anxiety; No PMDD Preventive measures:Encourage self breast examination; Encourage regular exercise; Encourage no tobacco use; Encourage regular mammograms starting age 42Notes:38yo wweBC - BTLlast pap 04/2023 : nilm, HPV (-) JODIE Rodriguez [address], [place], [address], [facility] 05/21/2024 09:00:31 OBGyn Episode Ob Episode Information Episode Created Date Number of Fetuses Patient Bloodtype Patient rh Status Prepregnancy Weight lbs Domestic Partner Domestic Partner Phone Father Name Reconciling Clerk Status 08/24/19 21 1 CLOSED Fetus Data First Name Last Name Admitted to NICU Weight (g) Sex Living Outcome Pediatric Complications Fetus ID Race Codes Race Delivery Type 4053.75 1704 M Full Term 19306 Primary Joshua Calculation Initial Joshua Date Initial Exam Date Initial Exam Provider Initial Ultrasound Date Last Menstrual Period Date Ultra Sound Weeks Gestation 0 Eighteen To Twenty Week Joshua Update Ultra Sound Date Fundal Height At Umbil Quickening Date Ultra Sound Latest Weeks Gestation Final Joshua Confirmed By Final Joshua Confirmed Date Final Joshua Date Ultra Sound Latest Days Gestation 0 0 Menstrual History Last Menstrual Date Menses Monthly On Bcp Conception Prior Menses Frequency Hcg Plus Date Menarche Onset Age Delivery Information Delivery Date Delivery Type Labor Anesthesia Weeks Gestation Incision Type Labor Labor Length Hrs Delivered By Post Complications Tubal Sterilization Discharge Date Comments 9 40 Discharge Information Feeding Method Contraceptive Method Maternal HG B and HCT Levels Ob Episode Information Episode Created Date Number of Fetuses Patient Bloodtype Patient rh Status Prepregnancy Weight lbs Domestic Partner Domestic Partner Phone Father Name Reconciling Clerk Status 08/24/19 21 1 CLOSED Fetus Data First Name Last Name Admitted to NICU Weight (g) Sex Living Outcome Pediatric Complications Fetus ID Race Codes Race Delivery Type , Induced [id number] Joshua Calculation Initial Joshua Date Initial Exam Date Initial Exam Provider Initial Ultrasound Date Last Menstrual Period Date Ultra Sound Weeks Gestation 0 Eighteen To Twenty Week Joshua Update Ultra Sound Date Fundal Height At Umbil Quickening Date Ultra Sound Latest Weeks Gestation Final Joshua Confirmed By Final Joshua Confirmed Date Final Joshua Date Ultra Sound Latest Days Gestation 0 0 Menstrual History Last Menstrual Date Menses Monthly On Bcp Conception Prior Menses Frequency Hcg Plus Date Menarche Onset Age Delivery Information Delivery Date Delivery Type Labor Anesthesia Weeks Gestation Incision Type Labor Labor Length Hrs Delivered By Post Complications Tubal Sterilization Discharge Date Comments 9 Discharge Information Feeding Method Contraceptive Method Maternal HG B and HCT Levels Ob Episode Information Episode Created Date Number of Fetuses Patient Bloodtype Patient rh Status Prepregnancy Weight lbs Domestic Partner Domestic Partner Phone Father Name Reconciling Clerk Status 08/24/19 21 1 CLOSED Fetus Data First Name Last Name Admitted to NICU Weight (g) Sex Living Outcome Pediatric Complications Fetus ID Race Codes Race Delivery Type 3543.46 0704 F Full Term 12041 Repeat Joshua Calculation Initial Joshua Date Initial Exam Date Initial Exam Provider Initial Ultrasound Date Last Menstrual Period Date Ultra Sound Weeks Gestation 0 Eighteen To Twenty Week Joshua Update Ultra Sound Date Fundal Height At Umbil Quickening Date Ultra Sound Latest Weeks Gestation Final Joshua Confirmed By Final Joshua Confirmed Date Final Joshua Date Ultra Sound Latest Days Gestation 0 0 Menstrual History Last Menstrual Date Menses Monthly On Bcp Conception Prior Menses Frequency Hcg Plus Date Menarche Onset Age Delivery Information Delivery Date Delivery Type Labor Anesthesia Weeks Gestation Incision Type Labor Labor Length Hrs Delivered By Post Complications Tubal Sterilization Discharge Date Comments 6 39 Discharge Information Feeding Method Contraceptive Method Maternal HG B and HCT Levels Ob Episode Information Episode Created Date Number of Fetuses Patient Bloodtype Patient rh Status Prepregnancy Weight lbs Domestic Partner Domestic Partner Phone Father Name Reconciling Clerk Status 08/24/19 21 1 CLOSED Fetus Data First Name Last Name Admitted to NICU Weight (g) Sex Living Outcome Pediatric Complications Fetus ID Race Codes Race Delivery Type , Induced [id number] Joshua Calculation Initial Joshua Date Initial Exam Date Initial Exam Provider Initial Ultrasound Date Last Menstrual Period Date Ultra Sound Weeks Gestation 0 Eighteen To Twenty Week Joshua Update Ultra Sound Date Fundal Height At Umbil Quickening Date Ultra Sound Latest Weeks Gestation Final Joshua Confirmed By Final Joshua Confirmed Date Final Joshua Date Ultra Sound Latest Days Gestation 0 0 Menstrual History Last Menstrual Date Menses Monthly On Bcp Conception Prior Menses Frequency Hcg Plus Date Menarche Onset Age Delivery Information Delivery Date Delivery Type Labor Anesthesia Weeks Gestation Incision Type Labor Labor Length Hrs Delivered By Post Complications Tubal Sterilization Discharge Date Comments 5 Discharge Information Feeding Method Contraceptive Method Maternal HG B and HCT Levels
== END 2024-06-28 13:27 | disposition home or self-care (01) ==
LOC: ANHIMG 13:29
PROVIDERS: PCP Internal Medicine; Visit Provider Nurse Practitioner
DX: R59.0 Localized enlarged lymph nodes (principal)
CPT/HCPCS: 77062; 77066; G0279

== ENCOUNTER 2024-08-09 12:39 | Emergency (ER) | payer OTHER, SELFPAY ==
[2024-08-09 12:51] VITALS: BP 139/87; PULSE 96; RESP 16; TEMP 36.4; O2SAT 97
--- NOTE | 2024-08-09 13:46 | ED_ITS ---
HPI - Ear Problem General Chief complaint: Ear Stated complaint: left ear pain Time Seen by Provider: 08/09/24 12:47 Source: patient, RN notes reviewed and old records reviewed Mode of arrival: ambulatory Limitations: no limitations History of Present Illness HPI Narrative: 38-year-old female presents to the [facility] with 2 day history of last ear pressure, worse at night. Has taken Tylenol, denies any other symptoms. Related Data Home Medications ?Medication ?Instructions ?Recorded ?Confirmed ?Last Taken ?Type escitalopram oxalate 10 mg tablet 10 mg PO DIRECTED 07/12/22 12/28/23 Unknown History bupropion HCl 150 mg 24 hr tablet, mg PO 04/02/24 Unknown History extended release omeprazole 40 mg capsule,delayed mg 04/02/24 Unknown History release Allergies Allergy/AdvReac Type Severity Reaction Status Date / Time No Known Allergies Allergy Verified 08/09/24 13:26 Review of Systems Review of Systems: All systems reviewed & are unremarkable except as noted in HPI and below Constitutional: Constitutional: Reports no additional constitutional complaints ENT: Reports as per HPI Cardiovascular: Cardiovascular: Reports no additional cardiovascular complaints, Denies chest pain and Denies dyspnea Respiratory: Respiratory: Reports no additional respiratory complaints, Denies chest congestion, Denies cough and Denies dyspnea Musculoskeletal: Musculoskeletal: Reports no additional musculoskeletal complaints Integumentary/Breasts: Skin/Breast: Reports system reviewed and no additional complaints, except as docu PMFSH Past Medical History Medical History GERD (gastroesophageal reflux disease) Delivery with history of Comments At the time of my signature, I reviewed and agree with the nursing past medical, surgical, social, and family history. There is no relevant family history pertinent to the patient complaint. Exam Const: General: cooperative, healthy appearing, comfortable, no acute distress, well developed, alert and well nourished Nutritional Appearance: well nourished Orientation/consciousness: patient oriented x3 Limitations: no limitations HENMT: Head: normal to inspection Ears: hearing grossly normal bilaterally, external ears normal, EAC's normal, mastoids normal, no periauricular adenopathy and TM abnormal wth effusion serous on the left Face/Nose/Sinus: Normal external nose present, Normal nares present and No nasal discharge present Mouth: Yes Normal oral and palatal mucosa present, Yes lip normal, Yes tongue normal and Yes moist mucous membranes Throat: posterior oropharynx normal, uvula midline and no uvular edema Eyes: General: appearance normal, both eyes and all related structures Alignment and Position: alignment normal Neck: Neck: normal visual inspection, full ROM, no lymphadenopathy and no meningeal signs Chest: Chest palpation & inspection: normal inspection of the chest Resp: Effort & Inspection: normal respiratory effort and able to speak in complete sentences Auscultation: clear to auscultation bilaterally, no crackles, no rales, no rhonchi and no wheezes Cardio: Rate: regular rate Skin: General skin exam: normal color and no rashes or lesions noted Neuro: General: patient oriented x3, gait normal, moves all extremities and no meningeal signs Cognition (Neuro): normal cognition Speech: normal speech Gait exam (Neuro): Normal gait present Extrem: General: normal to inspection, full ROM, capillary refill normal and normal gait Psych: Appearance: grossly normal and well kempt Mental Status: mental status grossly normal Speech and movement: Normal speech and movement present and Clear speech present Affect: normal affect Attitude: cooperative Course Course Level of Care: Express Care Visit Vital Signs Vital signs: Vital Signs Temperature 97.5 F L 08/09/24 12:51 Pulse Rate 96 08/09/24 12:51 Respiratory Rate 16 08/09/24 12:51 Blood Pressure 139/87 08/09/24 12:51 Pulse Oximetry 97 08/09/24 12:51 Oxygen Delivery Room Air 08/09/24 12:51 Temperature 97.5 F L 08/09/24 12:51 Pulse Rate 96 08/09/24 12:51 Respiratory Rate 16 08/09/24 12:51 Blood Pressure 139/87 08/09/24 12:51 Pulse Oximetry 97 08/09/24 12:51 Oxygen Delivery Room Air 08/09/24 12:51 Reviewed Medical Decision Making MDM Narrative Medical decision making narrative: Patient sitting comfortably in exam room. Nontoxic, vitals stable. Patient in no acute distress Patient presents with left ear discomfort . clear fluid noted, no other acute finding Patient appropriate for outpatient treatment with close follow-up. Discussed using [id number] products Discharge instructions reviewed with patient, as well as provided in writing per nursing staff. The instructions also include specific and strict return/GO TO THE ER as well as f/u information. All questions have been answered, and the patient deny any further questions with discharge and discharge plan. Some parts of this dictation were generated by voice recognition software and may contain typographical and/or grammatical inaccuracies. Differential Diagnosis Differential Diagnosis: Serous otitis, otitis media, URI, otitis externa Medical Records Medical records reviewed: Yes I reviewed the external patient's medical records. Vital Signs Vital Signs: Vital Signs Temperature 97.5 F L 08/09/24 12:51 Pulse Rate 96 08/09/24 12:51 Respiratory Rate 16 08/09/24 12:51 Blood Pressure 139/87 08/09/24 12:51 Pulse Oximetry 97 08/09/24 12:51 Oxygen Delivery Room Air 08/09/24 12:51 Temperature 97.5 F L 08/09/24 12:51 Pulse Rate 96 08/09/24 12:51 Respiratory Rate 16 08/09/24 12:51 Blood Pressure 139/87 08/09/24 12:51 Pulse Oximetry 97 08/09/24 12:51 Oxygen Delivery Room Air 08/09/24 12:51 Reviewed Lab Data Lab results reviewed: Yes I reviewed the patient's lab results. Labs: Reviewed Critical Care Time Critical Care Time Critical Care Time: No Discharge Plan Discharge Clinical Impression: Acute serous otitis media of left ear Patient Disposition: Home Condition: Stable Instructions: Fluid In The Ear (Serous Otitis Media) (ED) Additional Instructions: It is very important to treat your symptoms. Drink plenty of water, Gatorade, Pedialyte, ice pops or Jell-O. -Alternate Tylenol and Motrin per package directions for fever or pain. You can alternate every 4 hours -Antihistamine medication such as Zyrtec/Claritin/Mamie during the day can help improve symptoms. -doing daily nasal irrigations can help relieve pressure your sinuses. Things like a Neti pot -Use Flonase twice a day for 5 days then daily to help reduce the inflammation and dry up your sinuses. -You can also use Mucinex. Be sure to drink plenty of water with this medication at least 8 ounces with every dose and it is important to drink 8 to 10 glasses of water per day. Water is a natural decongestant -Frequent hand washing or hand senior clinical research associate is one of the best ways to prevent spread of infection. -Using a vaporizer or humidifier at night will also help thin secretions and help with coughing up phlegm. -Follow up with primary care provider in 7-10 days if condition is not improving - For new or worsening symptoms go directly to the nearest ER Patient Language: Afghan Prescriptions: New cetirizine [24Hour Allergy] 10 mg tablet 10 mg PO DAILY Qty: 30 0RF fluticasone propionate [24 Hour Allergy Relief] 50 mcg/actuation spray,suspension 2 spray intranasal DAILY Qty: 16 0RF Rx Instructions: administer into each nostril No Action escitalopram oxalate 10 mg tablet 10 mg PO DIRECTED omeprazole 40 mg capsule,delayed release(DR/EC) bupropion HCl 150 mg tablet extended release 24 hr PO Follow-up/Referrals: Yoel,Dagoberto Liu MD [Primary Care Provider] - 1 Week ([facility] follow up) Time of Disposition: 13:52
== END 2024-08-09 14:00 | disposition home or self-care (01) ==
PROVIDERS: Emergency Provider Nurse Practitioner; PCP Family Medicine
DX: H65.02 Acute serous otitis media, left ear (principal); K21.9 Gastro-esophageal reflux disease without esophagitis
CPT/HCPCS: 99213; G0463

== ENCOUNTER 2024-11-24 13:20 | Emergency (ER) | payer OTHER, SELFPAY ==
[2024-11-24 13:36] VITALS: BP 136/79; PULSE 77; RESP 18; TEMP 36.3; O2SAT 99
[2024-11-24 14:10] LABS: EDUAAPPEAR Clear; EDUABILI 1+ (Negative); EDUABLOOD 3+ (Negative); EDUACOLOR1 Dark; EDUAGLUCOSE Negative (Negative); EDUAKETONE Negative (Negative); EDUALEUKO Negative (Negative); EDUANITRATE Positive (Negative); EDUAPH 5.5; EDUAPROTEIN Negative (Negative); EDUASPGRAVITY 1.030; EDUAUROBILI 0.2
--- NOTE | 2024-11-24 14:14 | ED_ITS ---
HPI - Female Genitourinary General Chief complaint: Urogenital-Female Stated complaint: uti Time Seen by Provider: 11/24/24 13:55 Source: patient Mode of arrival: ambulatory Limitations: no limitations History of Present Illness HPI Narrative: 38-year-old female presents with complaint of urinary frequency, urgency, dysuria for 1 day. Notice blood when wiping. Concern for urinary tract infection. Patient also reports cough for about a week. Has had stress incontinence due to coughing. Using albuterol inhaler that is without relief of cough. Denies nausea vomiting. Afebrile. Positive chills. All systems reviewed and negative except as noted above. Related Data Home Medications ?Medication ?Instructions ?Recorded ?Confirmed ?Last Taken ?Type escitalopram oxalate 10 mg tablet 10 mg PO DIRECTED 07/12/22 12/28/23 Unknown History bupropion HCl 150 mg 24 hr tablet, mg PO 04/02/24 Unk nown History extended release omeprazole 40 mg capsule,delayed mg 04/02/24 Unknown History release Allergies Allergy/AdvReac Type Severity Reaction Status Date / Time No Known Allergies Allergy Verified 11/24/24 13:35 [facility] Past Medical History Medical History GERD (gastroesophageal reflux disease) Delivery with history of Comments At time of signature, agree with nursing past medical, surgical, social and family history. There is no relevant family history pertinent to the presenting complaint. Exam Narrative: GENERAL: This is a well-nourished, well-developed patient, in no apparent distress. HEAD: normocephalic, atraumatic. EYES: PERRL. Sclera clear/white. Vision is grossly intact. EARS: External ears normal, auditory canals clear and without drainage, TMs normal without perforation. Hearing grossly intact. NOSE: External nose normal with no obvious nasal discharge, nares without redness, no rhinorrhea. THROAT: Mucous membranes moist, posterior pharynx clear. NECK: Neck supple, non-tender without lymphadenopathy, masses or thyromegaly. CARDIOVASCULAR: Regular rate and rhythm without murmurs, gallops, or rubs. RESPIRATORY: Coarse throughout all lung lopez on expiration. Breath sounds equal bilaterally. No wheezes, rales, or rhonchi. SKIN: warm, Dry, intact with no suspicious lesions or rash, good texture and turgor. NEURO: awake, alert, and oriented to person, place and time. There were no obvious focal neurologic abnormalities. EXTREMITIES: No joint tenderness, effusion, or edema noted. Course Course Level of Care: Express Care Visit Vital Signs Vital signs: Vital Signs Temperature 36.3 C L 11/24/24 13:36 Pulse Rate 77 11/24/24 13:36 Respiratory Rate 18 11/24/24 13:36 Blood Pressure 136/79 11/24/24 13:36 Pulse Oximetry 99 11/24/24 13:36 Oxygen Delivery Room Air 11/24/24 13:36 Temperature 36.3 C L 11/24/24 13:36 Pulse Rate 77 11/24/24 13:36 Respiratory Rate 18 11/24/24 13:36 Blood Pressure 136/79 11/24/24 13:36 Pulse Oximetry 99 11/24/24 13:36 Oxygen Delivery Room Air 11/24/24 13:36 Reviewed MDM - Female Genitourinary MDM Narrative Medical decision making narrative: urinalysis positive nitrites. Will treat with antibiotic for urinary tract infection. Will treat cough with antibiotic, prednisone and albuterol. patient alert, nontoxic. Differential Diagnosis Differential diagnosis: Likely urinary tract infection Lab Data Labs: Lab Results 11/24/24 Range/Units 14:07 POC Urine Color Dark POC Urine Clarity Clear POC Urine pH 5.5 POC Ur Specif [place] 1.030 POC Urine Protein Negative (Negative) POC Ur Glucose (UA) Negative (Negative) POC Urine Ketones Negative (Negative) POC Urine Blood 3+ (Negative) POC Urine Nitrite Positive (Negative) POC Urine Bilirubin 1+ (Negative) POC Urine Urobilinogen 0.2 POC U Leukocyte Esteras Negative (Negative) Discharge Plan Discharge Clinical Impression: Urinary tract infection, Acute bronchitis Patient Disposition: Home Condition: Stable Instructions: Antibiotic Form, Urinary Tract Infection in Women (ED), Acute Bronchitis (ED) Additional Instructions: take antibiotic as prescribed until gone. Take Tylenol or ibuprofen every 6-8 hours as needed for pain. drink at least 64 oz of water a day. Follow-up with your primary care physician if symptoms are not improving. Patient Language: Greek Prescriptions: New benzonatate 200 mg capsule 200 mg PO TID PRN (Reason: cough) Qty: 20 0RF amoxicillin-pot clavulanate 875-125 mg tablet 1 tablet PO Q12H 7 Days Qty: 14 0RF prednisone 20 mg tablet 40 mg PO DAILY 5 Days Qty: 10 0RF albuterol sulfate 90 mcg/actuation HFA aerosol inhaler 2 puff inhalation Q4-6H PRN (Reason: shortness of breath or wheezing) Qty: 8.5 0RF (DME) Aerochamber Plus Z Stat Spacer See Rx Instructions .Route Qty: 1 0RF Rx Instructions: As directed No Action escitalopram oxalate 10 mg tablet 10 mg PO DIRECTED omeprazole 40 mg capsule,delayed release(DR/EC) bupropion HCl 150 mg tablet extended release 24 hr PO cetirizine [24Hour Allergy] 10 mg tablet 10 mg PO DAILY Qty: 30 0RF fluticasone propionate [24 Hour Allergy Relief] 50 mcg/actuation spray,suspension 2 spray intranasal DAILY Qty: 16 0RF Rx Instructions: administer into each nostril Follow-up/Referrals: Yoel,Dagoberto Liu MD [Primary Care Provider, Internal Medicine] Time of Disposition: 14:12
== END 2024-11-24 14:20 | disposition home or self-care (01) ==
PROVIDERS: Emergency Provider Nurse Practitioner Family; PCP Family Medicine
DX: N39.0 Urinary tract infection, site not specified (principal); J20.9 Acute bronchitis, unspecified; K21.9 Gastro-esophageal reflux disease without esophagitis
CPT/HCPCS: 81003; 87086; 87186; 99213; G0463